=== PATIENT | female | born 1995 | race Caucasian/White ===

== ENCOUNTER 2016-07-19 16:04 | Emergency (ER) | payer OTHER ==
[2016-07-19 16:23] VITALS: RESP 18
[2016-07-19] MEDS ORDERED: SODIUM CHLORIDE 0.9% 1,000 ML IV ONE (17:36)
[2016-07-19 18:16] LABS: Appearance,Urine Clear (Clear); Basophils # (A) 0.1 k/uL (0-0.2); Basophils % (A) 1 %; Bilirubin,Urine Negative (Negative); CH 27.4; CHCM 33.8; Eosinophils # (A) 0.2 k/uL (0-0.7); Eosinophils % (A) 1 %; Glucose,Urine (UA) Negative (Negative); HCT 40.2 % (34.0-46.0); HGB 13.5 gm/dL (11.4-16.0); Ketones,Urine Negative (Negative); Leukocyte Esterase,Urine Negative (Negative); Luc # (Auto) 0.21; Luc % (Auto) 2; Lymphocytes # (A) 2.7 k/uL (1.0-4.8); Lymphocytes % (A) 20 %; MCH 27.4 pg (25.0-35.0); MCHC 33.7 g/dL (31.0-37.0); MCV 81.3 fL (80.0-100.0); Mean Platelet Volume 6.5; Monocytes # (A) 0.8 k/uL (0-1.0); Monocytes % (A) 6 %; Neutrophils # (A) 9.2 k/uL (1.3-7.7); Neutrophils % (A) 70 %; Nitrite,Urine Negative (Negative); PH, Urine 5.5 (5.0-8.0); Protein,Urine Negative (Negative); RBC 4.94 m/uL (3.80-5.40); RDW 13.3 % (11.5-15.5); Specific Gravity,Urine 1.012 (1.001-1.035); UA Billing (MACRO vs. MICRO) CHEM; Urobilinogen,Urine <2.0 mg/dL (<2.0); WBC (Perox) 12.47
[2016-07-19 18:28] LABS: Anion Gap 11 mmol/L; Blood Urea Nitrogen 8 mg/dL (7-17); Calcium 9.3 mg/dL (8.4-10.2); Carbon Dioxide 24 mmol/L (22-30); Chloride 105 mmol/L (98-107); Glucose 84 mg/dL (74-99); Non-African American GFR(MDRD) >60 (>60 ml/min/1.73 sqM); Potassium 3.8 mmol/L (3.5-5.1); Sodium 140 mmol/L (137-145)
--- NOTE | 2016-07-19 18:45 | ED ---
General Adult HPI - General Chief complaint: Abdominal Pain Stated complaint: 9 weeks /Bleeding Source: patient Mode of arrival: ambulatory Limitations: no limitations - History of Present Illness Initial comments: 21 yo at 9 weeks presenting with deep complaint of abdominal cramping for the last couple days. She states that she has not been able to follow-up with her [employer] Dr. Peters but she has started on vitamins. She states she is currently not having any cramping but was concerned given her previous miscarriages. She denies any vaginal bleeding or discharge and further denies dysuria. There are no other symptoms at this time. - Related Data Home Medications Medication Instructions Recorded Confirmed Cephalexin [Keflex] 500 mg PO Q8HR 07/19/16 07/19/16 Pnv with Ca,No.72/Iron/FA 1 tab PO DAILY 07/19/16 07/19/16 [ Plus Tablet] Allergies Allergy/AdvReac Type Severity Reaction Status Date / Time No Known Allergies Allergy Verified 07/19/16 17:38 Review of Systems ROS Statement: Those systems with pertinent positive or pertinent negative responses have been documented in the HPI. ROS Other: All systems not noted in ROS Statement are negative. Constitutional: Denies: fever, chills Eyes: Denies: eye pain, eye discharge, vision change ENT: Denies: ear pain, throat pain Respiratory: Denies: cough, dyspnea, wheezes Cardiovascular: Denies: chest pain, palpitations, dyspnea on exertion, orthopnea Endocrine: Reports: other (Abdominal cramping). Denies: fatigue, polydipsia, polyuria Gastrointestinal: Denies: abdominal pain, nausea, vomiting, diarrhea, constipation Genitourinary: Denies: urgency, dysuria Musculoskeletal: Denies: back pain, arthralgia, myalgia Skin: Denies: rash, lesions Neurological: Denies: headache, weakness Psychiatric: Denies: anxiety, depression Hematological/Lymphatic: Denies: easy bleeding, easy bruising Past Medical History Past Medical History: No Reported History Additional Past Medical History / Comment(s): OB history: previous spontaneous . Blood type O+ History of Any Multi-Drug Resistant Organisms: None Reported Past Surgical History: Ear Surgery, Orthopedic Surgery Additional Past Surgical History / Comment(s): birthmark removed from back, tubes in ears, ORIF left foot, Past Anesthesia/Blood Transfusion Reactions: No Reported Reaction Past Psychological History: No Psychological Hx Reported Smoking Status: Former smoker Past Alcohol Use History: None Reported Additional Past Alcohol Use History / Comment(s): quit smoking 7 yrs ago, smoked for 3 yrs, < 1 PPD Past Drug Use History: Marijuana - Past Family History Mother Family Medical History: Deep Vein Thrombosis (DVT) General Exam Limitations: no limitations General appearance: alert, in no apparent distress Head exam: Present: atraumatic, normocephalic, normal inspection Eye exam: Present: normal appearance, PERRL, EOMI. Absent: scleral icterus, conjunctival injection, periorbital swelling ENT exam: Present: normal exam, mucous membranes moist Neck exam: Present: normal inspection. Absent: tenderness, meningismus, lymphadenopathy Respiratory exam: Present: normal lung sounds bilaterally. Absent: respiratory distress, wheezes, rales, rhonchi, stridor Cardiovascular Exam: Present: regular rate, normal rhythm, normal heart sounds. Absent: systolic murmur, diastolic murmur, rubs, gallop, clicks GI/Abdominal exam: Present: soft, normal bowel sounds. Absent: distended, tenderness, guarding, rebound, rigid Rectal exam: Present: deferred Extremities exam: Present: normal inspection, full ROM, normal capillary refill. Absent: tenderness, pedal edema, joint swelling, calf tenderness Back exam: Present: normal inspection Neurological exam: Present: alert, oriented X3, CN II-XII intact Psychiatric exam: Present: normal affect, normal mood Skin exam: Present: warm, dry, intact, normal color. Absent: rash Course Vital Signs 07/19/16 16:20 Temperature 98.0 F Pulse Rate 114 H Respiratory 18 Rate Blood Pressure 139/79 O2 Sat by Pulse 100 Oximetry Medical Decision Making - Medical Decision Making 21-year-old female at 9 weeks gestation presenting for evaluation of abdominal cramping for the last couple days. She is currently not having any cramps and denies any vaginal discharge, bleeding, or dysuria. On physical examination her abdomen is soft and nontender without any peritoneal signs of guarding rigidity or rebound. Otherwise exam is benign. We 'll obtain labs, OB ultrasound, and provide IV fluids. Labs revealed no significant abnormalities and Ultrasound OB: Gestational age is 9 weeks 2 days. No complications noted. The patient was reevaluated and continued to have no symptoms. She was informed of these results and advised to continue taking her vitamins and to follow up with Dr. Peters. She was further advised to return to this facility if her symptoms should worsen or persist including but not limited to: Intractable abdominal pain, intractable nausea and vomiting, dysuria, hematuria, inability to urinate, chest pain, shortness of breath, syncope. The patient acknowledged an understanding of this information and agreed with this plan of care. - Lab Data Result diagrams: 07/19/16 17:50 07/19/16 17:50 Lab Results 07/19/16 07/19/16 07/19/16 Range/Units 17:50 17:50 17:50 WBC 13.0 H (3.8-10.6) k/uL RBC 4.94 (3.80-5.40) m/uL Hgb 13.5 (11.4-16.0) gm/dL Hct 40.2 (34.0-46.0) % MCV 81.3 (80.0-100.0) fL MCH 27.4 (25.0-35.0) pg MCHC 33.7 (31.0-37.0) g/dL RDW 13.3 (11.5-15.5) % Plt Count 319 (150-450) k/uL Neutrophils % 70 % Lymphocytes % 20 % Monocytes % 6 % Eosinophils % 1 % Basophils % 1 % Neutrophils # 9.2 H (1.3-7.7) k/uL Lymphocytes # 2.7 (1.0-4.8) k/uL Monocytes # 0.8 (0-1.0) k/uL Eosinophils # 0.2 (0-0.7) k/uL Basophils # 0.1 (0-0.2) k/uL Sodium 140 (137-145) mmol/L Potassium 3.8 (3.5-5.1) mmol/L Chloride 105 (98-107) mmol/L Carbon Dioxide 24 (22-30) mmol/L Anion Gap 11 mmol/L BUN 8 (7-17) mg/dL Creatinine 0.60 (0.52-1.04) mg/dL Est GFR (MDRD) Af Amer >60 (>60 ml/min/1.73 sqM) Est GFR (MDRD) Non-Af >60 (>60 ml/min/1.73 sqM) Glucose 84 (74-99) mg/dL Calcium 9.3 (8.4-10.2) mg/dL HCG, Quant 254720.0 mIU/mL Urine Color Urine Appearance (Clear) Urine pH (5.0-8.0) Ur Specific [place] (1.001-1.035) Urine Protein (Negative) Urine Glucose (UA) (Negative) Urine Ketones (Negative) Urine Blood (Negative) Urine Nitrite (Negative) Urine Bilirubin (Negative) Urine Urobilinogen (<2.0) mg/dL Ur Leukocyte Esterase (Negative) Blood Type O Positive Blood Type Recheck No 07/19/16 Range/Units 17:50 WBC (3.8-10.6) k/uL RBC (3.80-5.40) m/uL Hgb (11.4-16.0) gm/dL Hct (34.0-46.0) % MCV (80.0-100.0) fL MCH (25.0-35.0) pg MCHC (31.0-37.0) g/dL RDW (11.5-15.5) % Plt Count (150-450) k/uL Neutrophils % % Lymphocytes % % Monocytes % % Eosinophils % % Basophils % % Neutrophils # (1.3-7.7) k/uL Lymphocytes # (1.0-4.8) k/uL Monocytes # (0-1.0) k/uL Eosinophils # (0-0.7) k/uL Basophils # (0-0.2) k/uL Sodium (137-145) mmol/L Potassium (3.5-5.1) mmol/L Chloride (98-107) mmol/L Carbon Dioxide (22-30) mmol/L Anion Gap mmol/L BUN (7-17) mg/dL Creatinine (0.52-1.04) mg/dL Est GFR (MDRD) Af Amer (>60 ml/min/1.73 sqM) Est GFR (MDRD) Non-Af (>60 ml/min/1.73 sqM) Glucose (74-99) mg/dL Calcium (8.4-10.2) mg/dL HCG, Quant mIU/mL Urine Color Yellow Urine Appearance Clear (Clear) Urine pH 5.5 (5.0-8.0) Ur Specific [place] 1.012 (1.001-1.035) Urine Protein Negative (Negative) Urine Glucose (UA) Negative (Negative) Urine Ketones Negative (Negative) Urine Blood Negative (Negative) Urine Nitrite Negative (Negative) Urine Bilirubin Negative (Negative) Urine Urobilinogen <2.0 (<2.0) mg/dL Ur Leukocyte Esterase Negative (Negative) Blood Type Blood Type Recheck Disposition Clinical Impression: First trimester Disposition: HOME SELF-CARE Condition: Stable Instructions: Abdominal Pain in (ED), (ED), Nausea and Vomiting in (ED) Time of Disposition: 19:54
--- NOTE | 2016-07-19 18:49 | US ---
EXAMINATION TYPE: US OB <= 14 wk fetus DATE OF EXAM: 07/19/2016 6:40 PM COMPARISON: NONE CLINICAL HISTORY: Pain. EXAM PERFORMED: Transabdominal (TA) EXAM MEASUREMENTS: GESTATIONAL AGE / DATING Physician Established: (9 weeks/4 days) EDC: 02/17/2017 Dates by LMP: (9 weeks/4 days) EDC: 02/17/2017 Dates by First Scan: No previous Dates by Current Scan for: (9 weeks/2 days) EDC: 02/19/2017 MATERNAL ANATOMY Uterus: 9.7 x 6.8 x 8.1 cm Right Ovary: 2.6 x 1.8 x 1.3 cm Left Ovary: 3.2 x 1.5 x 2.4 cm Post CDS / Adnexa: wnl Presence of free fluid: No Presence of corpus luteal cyst: No Presence of subchorionic bleed: No GESTATION / SURVEY CRL: 2.55 cm (9 weeks/2 days) Yolk Sac (normal less than 6mm): 3 mm Heart Rate: 176 bpm Rhythm: Normal IUP: Viable IUP Date of LMP: 05/13/2016 Beta HcG (if available): Not available at time of exam Viable IUP, measurements congruent with dates IMPRESSION: The ultrasound gestational age is 9 weeks 2 days. I see no complication process.
[2016-07-19 20:15] VITALS: BP 107/64; PULSE 88; TEMP 98.3
== END 2016-07-19 20:15 | disposition home or self-care (01) ==
LOC: EC 16:04
DX: O99.89 Other specified diseases and conditions complicating pregnancy, childbirth and the puerperium (principal); R10.9 Unspecified abdominal pain; Z3A.09 9 weeks gestation of pregnancy; Z87.891 Personal history of nicotine dependence; Z79.899 Other long term (current) drug therapy
CPT/HCPCS: 36415; 76801; 80048; 81003; 84702; 85025; 86900; 86901; 96360; 96361; 99284

== ENCOUNTER → 2016-08-16 | Outpatient (CLI) | payer OTHER ==
[2016-08-16 11:43] LABS: CH 27.5; CHCM 32.9; HCT 38.5 % (34.0-46.0); HDW 2.33; HGB 12.9 gm/dL (11.4-16.0); MCH 28.2 pg (25.0-35.0); MCHC 33.5 g/dL (31.0-37.0); MCV 84.2 fL (80.0-100.0); Mean Platelet Volume 6.3; RBC 4.57 m/uL (3.80-5.40); WBC 14.2 k/uL (3.8-10.6)
[2016-08-16 11:50] LABS: Glucose 75 mg/dL (74-99); Non-African American GFR(MDRD) >60 (>60 ml/min/1.73 sqM)
[2016-08-16 12:22] LABS: Hepatitis B Surface Ag Index 0.05
[2016-08-17 05:03] LABS: Toxoplasma Antibody (IgG) <3.0 IU/mL (<7.2)
[2016-08-17 06:51] LABS: HIV-1/HIV-2 Ab Screen NONREAC (NON REAC)
== END | disposition home or self-care (01) ==
LOC: LABWHC1 11:07
PROVIDERS: ATTEND Obstetrics & Gynecology
DX: Z34.82 Encounter for supervision of other normal pregnancy, second trimester (principal); Z3A.00 Weeks of gestation of pregnancy not specified
CPT/HCPCS: 36415; 82565; 82947; 85027; 86762; 86777; 86778; 86780; 86850; 86900; 86901; 87340; 87389

== ENCOUNTER → 2016-11-04 | Outpatient (CLI) | payer OTHER ==
[2016-11-04 12:23] LABS: CH 29.1; CHCM 33.3; HCT 38.1 % (34.0-46.0); HDW 2.47; HGB 12.7 gm/dL (11.4-16.0); MCH 29.4 pg (25.0-35.0); MCHC 33.4 g/dL (31.0-37.0); MCV 87.9 fL (80.0-100.0); Mean Platelet Volume 7.2; RBC 4.33 m/uL (3.80-5.40); RDW 13.9 % (11.5-15.5); WBC 15.6 k/uL (3.8-10.6)
== END | disposition home or self-care (01) ==
LOC: LABWHC1 10:41
PROVIDERS: ATTEND Obstetrics & Gynecology
DX: Z34.82 Encounter for supervision of other normal pregnancy, second trimester (principal); Z3A.00 Weeks of gestation of pregnancy not specified
CPT/HCPCS: 36415; 82950; 85027

== ENCOUNTER 2016-12-06 22:44 | Outpatient (CLI) | payer OTHER ==
[2016-12-07 02:36] VITALS: BP 137/71; PULSE 92; RESP 16; TEMP 98.3
--- NOTE | 2016-12-08 09:02 | P.MSEPDOC ---
Presenting Problems - Arrival Data Date of Arrival on Unit: 12/06/16 Time of Arrival on Unit: 22:44 Mode of Transport: Ambulatory - Complaint OB-Reason for Admission/Chief Complaint: Other Comment: pt fell an hour before she came in Medical History - Information : 3 Para: 0 Term: 0 : 0 Abortions: Spontaneous or Elective: 0 Number of Living Children: 0 - Gestational Age Expected Date of Delivery: 02/17/17 Gestational Age by ROSALINO (wks/days): 29 Weeks and 6 Days Review of Systems - Review of Systems Constitutional: No problems Breast: No problems ENT: No problems Cardiovascular: No problems Respiratory: No problems Gastrointestinal: No problems Genitourinary: No problems Musculoskeletal: No problems Neurological: No problems Skin: No problems Vital Signs - Temperature Temperature: 98.3 F Temperature Source: Oral - Pulse Right Sitting Brachial Pulse Rate: 92 Pulse Assessment Method: Automatic Cuff - Respirations Respiratory Rate: 16 Oxygen Delivery Method: Room Air O2 Sat by Pulse Oximetry: 100 - Blood Pressure Right Arm Sitting Blood Pressure: 137/71 Blood Pressure Mean: 93 Blood Pressure Source: Automatic Cuff Medical Screen Scoring (Pre) - Cervical Exam Dilation: Exam Deferred Effacement: Exam Deferred Membranes: Intact - Uterine Contractions Frequency: N/A Duration: N/A Intensity: N/A - Maternal Vital Signs Maternal Temperature: N/A Maternal Blood Pressure: N/A Signs of Preeclampsia: N/A Maternal Respirations: N/A - Maternal Trauma Maternal Trauma: N/A - Assessment Heart Rate - NICHD Category: Category II (Indeterminate) = 3 NST: Reactive Position: N/A Station: N/A - Total Score Total Score (Pre): 3 - Level of Risk Level of Risk: Low (0-5) Physician Notification (Pre) - Physician Notified Physician Notified Date: 12/06/16 Physician Notified Time: 22:55 Physician/Practitioner Notifed:: Dr Fran Weathers Order Received: Yes - Notification Comment Comment: pt may be d/c with reactive NST, after being toco monitored for 3 hours. Medical Screen Scoring (Post) - Cervical Exam Dilation: Exam Deferred Effacement: Exam Deferred Membranes: Intact - Uterine Contractions Frequency: N/A Duration: N/A Intensity: N/A - Maternal Vital Signs Maternal Temperature: N/A Maternal Blood Pressure: N/A Signs of Preeclampsia: N/A Maternal Respirations: N/A - Assessment Heart Rate - NICHD Category: Category I (Normal) = 0 NST: Reactive - Total Score Total Score (Post): 0 - Post Treatment Level of Risk Post Treatment Level of Risk: Low (0-5) Disposition - Disposition OB Disposition: Discharge to home, Written follow up instructions reviewed Discharge Date: 12/07/16 Discharge Time: 02:00 I agree with the RN Medical Screening Exam: Yes Risk & Benefit of care provided described in d/c instruction: Yes Diagnosis: 29 WEEKS GESTATION OF
== END 2016-12-07 02:00 | disposition home or self-care (01) ==
LOC: FBPOP 22:44
PROVIDERS: ATTEND Obstetrics & Gynecology
DX: O26.893 Other specified pregnancy related conditions, third trimester (principal); Z3A.29 29 weeks gestation of pregnancy
CPT/HCPCS: 59025; G0463; 99213

== ENCOUNTER 2017-02-18 14:01 | Outpatient (CLI) | payer OTHER ==
[2017-02-18 15:09] VITALS: BP 137/81; PULSE 105; RESP 18; TEMP 98.4
--- NOTE | 2017-02-19 11:09 | P.MSEPDOC ---
Presenting Problems - Arrival Data Date of Arrival on Unit: 02/18/17 Time of Arrival on Unit: 14:01 Mode of Transport: Ambulatory - Complaint OB-Reason for Admission/Chief Complaint: Rule Out SROM Comment: leaking fluid for the last few days Medical History - Information : 3 Para: 0 Term: 0 : 0 Abortions: Spontaneous or Elective: 0 Number of Living Children: 0 - Gestational Age Gestational Age by ROSALINO (wks/days): 40 Weeks and 1 Days Review of Systems - Review of Systems Constitutional: No problems Breast: No problems ENT: No problems Cardiovascular: No problems Respiratory: No problems Gastrointestinal: No problems Genitourinary: No problems Musculoskeletal: No problems Neurological: No problems Skin: No problems Vital Signs - Temperature Temperature: 98.4 F Temperature Source: Temporal Artery Scan - Pulse Right Brachial Pulse Rate: 105 Pulse Assessment Method: Automatic Cuff - Respirations Respiratory Rate: 18 Oxygen Delivery Method: Room Air - Blood Pressure Right Arm Blood Pressure: 137/81 Blood Pressure Mean: 99 Blood Pressure Source: Automatic Cuff Medical Screen Scoring (Pre) - Cervical Exam Dilation: 1-3 cm = 1 Effacement: More than 50% = 2 Membranes: Intact - Uterine Contractions Frequency: > 5 minutes apart = 1 Duration: N/A Intensity: N/A - Maternal Vital Signs Maternal Temperature: N/A Maternal Blood Pressure: N/A Signs of Preeclampsia: N/A Maternal Respirations: N/A - Pain Assessment Pain Scale Used: Numeric (1 - 10) Pain Intensity: 0 - Maternal Trauma Maternal Trauma: N/A - Assessment Baseline FHR: 150 Heart Rate - NICHD Category: Category I (Normal) = 0 NST: Reactive Position: N/A Station: N/A - Total Score Total Score (Pre): 4 - Level of Risk Level of Risk: Low (0-5) Physician Notification (Pre) - Physician Notified Physician Notified Date: 02/18/17 Physician Notified Time: 14:50 Physician/Practitioner Notifed:: Dr. Jensen Spoke With: Dr. Jensen New Order Received: Yes - Notification Comment Comment: discharge pt home, follow up at scheduled appt on monday in office with Dr. Peters Disposition - Disposition OB Disposition: Triage, Discharge to home, Written follow up instructions reviewed Discharge Date: 02/18/17 Discharge Time: 15:00 I agree with the RN Medical Screening Exam: Yes Risk & Benefit of care provided described in d/c instruction: Yes Diagnosis: FALSE LABOR AT OR AFTER 37 COMPLETED WEEKS OF GESTATION
== END 2017-02-18 15:00 | disposition home or self-care (01) ==
LOC: FBPOP 14:01
PROVIDERS: ATTEND Obstetrics & Gynecology
DX: O47.1 False labor at or after 37 completed weeks of gestation (principal); Z3A.40 40 weeks gestation of pregnancy
CPT/HCPCS: 59025; 84112; G0463; 99213

== ENCOUNTER 2017-02-19 10:00 | Outpatient (CLI) | payer OTHER ==
[2017-02-19 10:55] VITALS: BP 136/64; PULSE 110; RESP 18; TEMP 97.7
--- NOTE | 2017-03-03 08:56 | P.MSEPDOC ---
Presenting Problems - Arrival Data Date of Arrival on Unit: 02/19/17 Time of Arrival on Unit: 10:00 Mode of Transport: Ambulatory - Complaint OB-Reason for Admission/Chief Complaint: Possible Onset of Labor Medical History - Information : 3 Para: 0 Term: 0 : 0 Abortions: Spontaneous or Elective: 0 Number of Living Children: 0 - Gestational Age Gestational Age by ROSALINO (wks/days): 40 Weeks and 2 Days - History Sexually Transmitted Diseases: Chlamydia Comment: 02-18-2016. retested and negative on 03-12-2016 Review of Systems - Review of Systems Constitutional: No problems Breast: No problems ENT: No problems Cardiovascular: No problems Respiratory: No problems Gastrointestinal: No problems Genitourinary: No problems Musculoskeletal: No problems Neurological: No problems Skin: No problems Vital Signs - Temperature Temperature: 97.7 F Temperature Source: Oral - Pulse Right Brachial Pulse Rate: 110 Pulse Assessment Method: Automatic Cuff - Respirations Respiratory Rate: 18 Oxygen Delivery Method: Room Air O2 Sat by Pulse Oximetry: 96 - Blood Pressure Right Arm Blood Pressure: 136/64 Blood Pressure Mean: 88 Blood Pressure Source: Automatic Cuff Medical Screen Scoring (Pre) - Cervical Exam Dilation: 1-3 cm = 1 Effacement: More than 50% = 2 Membranes: Intact - Uterine Contractions Frequency: > 5 minutes apart = 1 Duration: > 40 seconds = 2 Intensity: N/A - Maternal Vital Signs Maternal Temperature: N/A Maternal Blood Pressure: N/A Signs of Preeclampsia: N/A Maternal Respirations: N/A - Pain Assessment Pain Location and Character: Lower, Back, Abdomen Pain Scale Used: Numeric (1 - 10) Pain Intensity: 5 Pain Description: Cramping Pain Frequency: Intermittent Pain Duration: 7 Pain Duration Units: Hours Pain Behavior: None Exhibited Pain Aggravating Factors: Contractions Non-Pharmacological Interventions: Darkened Room, Position/Reposition FLACC Face: No Expression/Smile = 0 FLACC Legs: Relaxed = 0 FLACC Activity: Lying Quietly = 0 FLACC Cry: No Cry = 0 FLACC Consolability: Content/Relaxed = 0 FLACC Pain Score: 0 - Maternal Trauma Maternal Trauma: N/A - Assessment Baseline FHR: 155 Heart Rate - NICHD Category: Category I (Normal) = 0 NST: Reactive Position: N/A Station: N/A - Total Score Total Score (Pre): 6 - Level of Risk Level of Risk: Medium (6-9) Physician Notification (Pre) - Physician Notified Spoke With: brittny - Notification Comment Comment: disch home to keep next sched appt tomoroow with dr bird Medical Screen Scoring (Post) - Cervical Exam Dilation: 1-3 cm = 1 Effacement: More than 50% = 2 Membranes: Intact - Uterine Contractions Frequency: > 5 minutes apart = 1 Duration: > 40 seconds = 2 Intensity: N/A - Maternal Vital Signs Maternal Temperature: N/A Maternal Blood Pressure: N/A Signs of Preeclampsia: N/A Maternal Respirations: N/A - Pain Assessment Pain Location and Character: Lower, Back, Abdomen Pain Scale Used: Numeric (1 - 10) Pain Intensity: 5 Pain Description: Cramping Pain Frequency: Intermittent Pain Duration: 7 Pain Duration Units: Hours Pain Behavior: None Exhibited FLACC Face: No Expression/Smile = 0 FLACC Legs: Relaxed = 0 FLACC Activity: Lying Quietly = 0 FLACC Cry: No Cry = 0 FLACC Consolability: Content/Relaxed = 0 FLACC Pain Score: 0 - Assessment Heart Rate: 155 Heart Rate - NICHD Category: Category I (Normal) = 0 NST: Reactive Station: N/A - Total Score Total Score (Post): 6 - Post Treatment Level of Risk Post Treatment Level of Risk: Medium (6-9) Physician Notification (Post) - Physician Notified Physician Notified Date: 02/19/17 Physician Notified Time: 11:18 Physician/Practitioner Notified:: brittny New Order Received: Yes - Notification Comment Comment: disch to keep sched appt tomorrow am. with dr bird Disposition - Disposition OB Disposition: Discharge to home Discharge Date: 02/19/17 Discharge Time: 11:18 I agree with the RN Medical Screening Exam: Yes Risk & Benefit of care provided described in d/c instruction: Yes Diagnosis: FALSE LABOR AT OR AFTER 37 COMPLETED WEEKS OF GESTATION
== END 2017-02-19 11:21 | disposition home or self-care (01) ==
LOC: FBPOP 10:00
PROVIDERS: ATTEND Obstetrics & Gynecology
DX: O47.1 False labor at or after 37 completed weeks of gestation (principal); Z3A.40 40 weeks gestation of pregnancy
CPT/HCPCS: 59025; G0463; 99213

== ENCOUNTER 2017-02-19 18:14 | Inpatient (IN) | payer OTHER ==
[2017-02-19] MEDS ORDERED: TERBUTALINE 1 MG/ML VIAL SQ PRN (18:52)
[2017-02-19] MEDS ORDERED: CARBOPROST TROMETHAMINE 250 MCG/ML 1 ML AMP IM PRN (18:52)
[2017-02-19] MEDS ORDERED: METHYLERGONOVINE 0.2 MG/ML 1 ML AMP IM PRN (18:52)
[2017-02-19] MEDS ORDERED: OXYTOCIN 10 UNIT/ML 1 ML VIAL IM PRN (18:52)
[2017-02-19] MEDS ORDERED: LIDOCAINE 1% (PF) 10 MG/ML (30 ML SDV) SQ PRN (18:52)
[2017-02-19 19:23] VITALS: BMI 35.0
[2017-02-19] MEDS: LACTATED RINGERS 1,000 ML IV SCH ×2 (19:24→20:50)
[2017-02-19 19:38] LABS: Basophils % (A) 0 %; CH 27.9; CHCM 33.1; Eosinophils % (A) 0 %; HCT 41.4 % (34.0-46.0); HGB 13.7 gm/dL (11.4-16.0); Luc % (Auto) 1; Lymphocytes # (A) 1.3 k/uL (1.0-4.8); Lymphocytes % (A) 6 %; MCHC 33.1 g/dL (31.0-37.0); MCV 84.5 fL (80.0-100.0); Mean Platelet Volume 7.8; Monocytes # (A) 0.8 k/uL (0-1.0); Monocytes % (A) 4 %; Neutrophils # (A) 18.7 k/uL (1.3-7.7); Neutrophils % (A) 89 %; RBC 4.89 m/uL (3.80-5.40); RDW 14.2 % (11.5-15.5); WBC (Perox) 20.88
[2017-02-19] MEDS ORDERED: OXYTOCIN 20 UNITS/1000 ML NS 1,000 ML IV SCH (20:00)
[2017-02-19] MEDS ORDERED: BUTORPHANOL 1 MG/ML 1 ML VIAL IV PRN (20:30)
[2017-02-19] MEDS ORDERED: SODIUM CHLORIDE 0.9% 100 ML BAG ONE (20:40)
[2017-02-19] MEDS ORDERED: BUPIVACAINE (PF) 0.25% 30 ML VIAL ONE (20:40)
[2017-02-19] MEDS ORDERED: fentaNYL (PF) 50 MCG/ML 5 ML AMP ONE (20:40)
[2017-02-19] MEDS ORDERED: BUPIVACAINE (PF) 0.25% 25 ML, fentaNYL (PF) 200 MCG in SODIUM CHLORIDE 0.9% 71 ML EPIDURAL ONE (21:38)
--- NOTE | 2017-02-19 22:47 | P.HPOB ---
History of Present Illness H&P Date: 02/19/17 Chief Complaint: Contractions This is a 21-year-old female 3 para 0 with an estimated date of confinement of 02/17/2017, estimated gestational age of 40-2/7 weeks, who presents to labor and delivery with complaints of contractions since approximately 3:30 AM today. She was seen in triage earlier today and was found to be 1-1/2 cm without any cervical change for an hour. She returned and was found to be 4 cm. She denies any rupture of membranes. care has been with Dr. Peters and has been essentially uncomplicated per patient. labs: Syphilis antibody-negative nonreactive Hepatitis B surface antigen-negative HIV-nonreactive Rubella-nonimmune Hemoglobin-13.5 One hour Glucola-114 Group B streptococcus-negative Obstetrical history: . History of 2 miscarriages. Review of Systems Constitutional: Denies chills, Denies fever Eyes: denies blurred vision, denies pain Ears, nose, mouth and throat: Denies headache, Denies sore throat Cardiovascular: Denies chest pain, Denies shortness of breath Respiratory: Denies cough Gastrointestinal: Reports abdominal pain (Contractions) Genitourinary: Reports pelvic pain, Reports Musculoskeletal: Reports low back pain Integumentary: Denies pruritus, Denies rash Neurological: Denies numbness, Denies weakness Psychiatric: Denies anxiety, Denies depression Past Medical History Past Medical History: No Reported History History of Any Multi-Drug Resistant Organisms: None Reported Past Surgical History: Ear Surgery, Orthopedic Surgery Additional Past Surgical History / Comment(s): birthmark removed from back, tubes in ears, ORIF left foot, Past Anesthesia/Blood Transfusion Reactions: No Reported Reaction Past Psychological History: No Psychological Hx Reported Smoking Status: Former smoker Past Alcohol Use History: None Reported Additional Past Alcohol Use History / Comment(s): quit smoking 7 yrs ago, smoked for 3 yrs, < 1 PPD Past Drug Use History: Marijuana - Past Family History Mother History Unknown: Yes Family Medical History: Deep Vein Thrombosis (DVT) Medications and Allergies Home Medications Medication Instructions Recorded Confirmed Type Pnv,Calcium 72/Iron/Folic Acid 1 tab PO DAILY 07/19/16 02/19/17 History [ Plus Tablet] Allergies Allergy/AdvReac Type Severity Reaction Status Date / Time No Known Allergies Allergy Verified 02/19/17 18:29 Exam Osteopathic Statement: *. No significant issues noted on an osteopathic structural exam other than those noted in the History and Physical/Consult. - Vital Signs Vital signs: Vital Signs Temp Pulse Resp BP 02/19/17 19:04 98 F 104 H 18 130/73 02/19/17 18:58 98.0 F 104 H 18 130/73 Intake and Output 02/19/17 02/19/17 02/19/17 06:59 14:59 22:59 Other: Weight 92.533 kg Patient Weight 02/20/17 06:59 Weight 92.533 kg HEENT: Within normal limits Heart: Regular rate and rhythm Lungs: Clear to auscultation bilaterally Abdomen: Cervix: Initially on admission was 4 cm/90%/-2 station with bulging bag heart tones: Reactive Contractions: Every 2-5 minutes Extremities: Negative Homans Results Result Diagrams: 02/19/17 19:20 Abnormal Lab Results - Last 24 Hours (Table) 02/19/17 Range/Units 19:20 WBC 21.0 H (3.8-10.6) k/uL Neutrophils # 18.7 H (1.3-7.7) k/uL Assessment and Plan (1) 40 weeks gestation of Current Visit: Yes Status: Acute Code(s): Z3A.40 - 40 WEEKS GESTATION OF SNOMED Code(s): 13385949 Plan: Plan is admission for active labor. Expectant management. Epidural anesthesia if desired.
--- NOTE | 2017-02-20 01:54 | P.PROBDLV ---
Vaginal Delivery Note - . Vaginal Delivery Note: The patient arrived in active labor. She did receive epidural anesthesia. After epidural she was checked and found to be approximately 7 cm and artificial rupture membranes was carried out. At that time she was having significant bloody show and we were unable to determine the color of the fluid. She progressed to complete dilation and began pushing. 's head came to a crown. With one further push the 's head delivered across the perineum by the anterior shoulder in a right occiput anterior lie. Nose and mouth were bulb suctioned at perineum and at this time it was noted that there was thick meconium. With one further push, the remainder the easily delivered and was placed on mother's abdomen. Brisk cry was noted immediately. Cord was clamped and cut and infant was taken to warmer nursing staff. A viable male with scores of 8 at 1 minute and 9 at 5 minutes and weight of 8 lbs. 1 oz. was noted. Placenta delivered shortly thereafter, intact, with a three-vessel cord. Uterus contracted fairly well after oxytocin was opened up and uterine massage was carried out. Inspection of the perineum revealed a small first-degree perineal laceration. This area was anesthetized with 1% lidocaine and sutured with 3-0 Vicryl suture in a running locked fashion. Estimated blood loss is approximately 150 mL's. Both mother and are in stable condition.
[2017-02-20] MEDS ORDERED: HYDROCORTISONE 2.5% RECTAL CREAM 30 GM TUBE RECTAL PRN (03:03)
[2017-02-20] MEDS ORDERED: diphenhydrAMINE 25 MG CAP PO PRN (03:03)
[2017-02-20] MEDS ORDERED: ZOLPIDEM 5 MG TAB PO PRN (03:03)
[2017-02-20] MEDS ORDERED: BENZOCAINE/MENTHOL SPRAY 1 GM/SPRAY AEROSOL TOPICAL PRN (03:03)
[2017-02-20] MEDS ORDERED: diphenhydrAMINE 50 MG CAP PO PRN (03:03)
[2017-02-20] MEDS ORDERED: LANOLIN CREAM 5 GM TUBE TOPICAL PRN (03:03)
[2017-02-20] MEDS ORDERED: diphenhydrAMINE 50 MG/ML 1 ML VIAL IVP PRN ×2 (03:03)
[2017-02-20] MEDS ORDERED: WITCH HAZEL 1 EACH MED..PAD TOPICAL PRN (03:03)
[2017-02-20] MEDS ORDERED: SIMETHICONE 80 MG CHEWABLE PO PRN (03:03)
[2017-02-20] MEDS ORDERED: MEASLES-MUMPS-RUBELLA VACC/PF 12,500 UNIT/0.5 ML VIAL SQ ONE (03:03)
[2017-02-20] MEDS ORDERED: ACETAMINOPHEN TAB 325 MG TAB PO PRN (03:03)
[2017-02-20] MEDS ORDERED: OXYTOCIN 20 UNITS/1000 ML NS 1,000 ML IV SCH (03:03)
[2017-02-20 06:35] LABS: Basophils % (A) 0 %; CH 28.2; CHCM 32.7; Eosinophils # (A) 0.1 k/uL (0-0.7); Eosinophils % (A) 0 %; HCT 37.4 % (34.0-46.0); HDW 2.43; HGB 11.9 gm/dL (11.4-16.0); Luc # (Auto) 0.18; Luc % (Auto) 1; Lymphocytes # (A) 1.6 k/uL (1.0-4.8); Lymphocytes % (A) 6 %; MCH 27.5 pg (25.0-35.0); MCHC 31.8 g/dL (31.0-37.0); MCV 86.5 fL (80.0-100.0); Mean Platelet Volume 7.4; Monocytes # (A) 1.7 k/uL (0-1.0); Monocytes % (A) 6 %; Neutrophils % (A) 87 %; RBC 4.32 m/uL (3.80-5.40); RDW 13.2 % (11.5-15.5); WBC (Perox) 29.14
[2017-02-20 06:48] LABS: WBC 27.5 k/uL (3.8-10.6)
[2017-02-20] MEDS: SENNOSIDES-DOCUSATE SODIUM 1 EACH TAB PO SCH ×2 (08:22→20:52)
--- NOTE | 2017-02-20 09:06 | P.MSEPDOC ---
Presenting Problems - Arrival Data Date of Arrival on Unit: 02/19/17 Time of Arrival on Unit: 18:14 Mode of Transport: Wheelchair - Complaint OB-Reason for Admission/Chief Complaint: Possible Onset of Labor Comment: contractions increasing in frequency and strength Medical History - Information : 3 Para: 0 Term: 0 : 0 Abortions: Spontaneous or Elective: 0 Number of Living Children: 0 - Gestational Age Gestational Age by ROSALINO (wks/days): 40 Weeks and 2 Days Review of Systems - Review of Systems Constitutional: No problems Breast: No problems ENT: No problems Cardiovascular: No problems Respiratory: No problems Gastrointestinal: No problems Genitourinary: No problems Musculoskeletal: No problems Neurological: No problems Skin: No problems Vital Signs - Temperature Temperature: 98.6 F Temperature Source: Oral - Pulse Right Brachial Pulse Rate: 110 Pulse Assessment Method: Automatic Cuff - Respirations Respiratory Rate: 16 Oxygen Delivery Method: Room Air - Blood Pressure Right Arm Blood Pressure: 108/55 Blood Pressure Mean: 72 Blood Pressure Source: Automatic Cuff Medical Screen Scoring (Pre) - Cervical Exam Dilation: 4-7 cm = 2 Effacement: More than 50% = 2 Membranes: Intact - Uterine Contractions Frequency: > or = 36 weeks =2 Duration: > 40 seconds = 2 Intensity: Contraction palpated strong = 1 - Maternal Vital Signs Maternal Temperature: N/A Maternal Blood Pressure: N/A Signs of Preeclampsia: N/A Maternal Respirations: N/A - Pain Assessment Pain Location and Character: Abdomen Pain Scale Used: Numeric (1 - 10) Pain Intensity: 6 Pain Management Goal: 3 Pain Description: *Acute Pain Radiation Location: none Pain Frequency: Intermittent Pain Duration: 60 Pain Duration Units: Minutes Pain Behavior: Guarding, Vocalization Non-Pharmacological Interventions: Position/Reposition - Maternal Trauma Maternal Trauma: N/A - Assessment Baseline FHR: 150 Heart Rate - NICHD Category: Category I (Normal) = 0 NST: Reactive Position: N/A Station: N/A - Total Score Total Score (Pre): 9 - Level of Risk Level of Risk: Medium (6-9) Physician Notification (Pre) - Physician Notified Physician Notified Date: 02/19/17 Physician Notified Time: 18:43 Physician/Practitioner Notifed:: Dr. Jensen Spoke With: Dr. Jensen New Order Received: Yes - Notification Comment Comment: admitted for labort Disposition - Disposition OB Disposition: Admit, LDRP Suite I agree with the RN Medical Screening Exam: Yes Risk & Benefit of care provided described in d/c instruction: Yes Diagnosis: ENCOUNTER FOR FULL-TERM UNCOMPLICATED DELIVERY
[2017-02-20] MEDS: IBUPROFEN 600 MG TAB PO PRN (14:53)
[2017-02-21] MEDS: IBUPROFEN 600 MG TAB PO PRN (07:56)
[2017-02-21] MEDS: SENNOSIDES-DOCUSATE SODIUM 1 EACH TAB PO SCH (07:56)
--- NOTE | 2017-02-21 07:58 | P.DS ---
Providers Date of admission: 02/19/17 19:00 Expected date of discharge: 02/21/17 Attending physician: Jennifer Peters Primary care physician: Stated None - Discharge Diagnosis(es) (1) Normal vaginal delivery Current Visit: Yes Status: Acute Hospital Course: Patient presented in active labor. She underwent normal vaginal delivery. Her course was uncomplicated. She denies nausea, vomiting, headache, fever chills, chest pain, shortness of breath or calf pain. She'll be discharged home day #1 in stable condition to follow-up with me in 6 weeks. Plan - Discharge Summary Discharge Rx Participant: Yes New Discharge Prescriptions: New Ibuprofen [Motrin] 600 mg PO Q6HR PRN #30 tab PRN Reason: Mild Pain Or Fever >= 100.5 No Action Pnv,Calcium 72/Iron/Folic Acid [ Plus Tablet] 1 tab PO DAILY Discharge Medication List Pnv,Calcium 72/Iron/Folic Acid [ Plus Tablet] 1 tab PO DAILY 07/19/16 [ History] Ibuprofen [Motrin] 600 mg PO Q6HR PRN #30 tab 02/21/17 [Rx] Follow up Appointment(s)/Referral(s): Jennifer Peters DO [Doctor of Osteopathic Medicine] - 6 Weeks Discharge Disposition: HOME SELF-CARE
[2017-02-21 09:27] VITALS: BP 123/72; PULSE 97; RESP 18; TEMP 98
== END 2017-02-21 10:25 | disposition home or self-care (01) | DRG 560 ==
LOC: FBPOP 18:14 → 4FBP 19:00
PROVIDERS: ADMIT Obstetrics & Gynecology; ATTEND Obstetrics & Gynecology
PROC: 10E0XZZ Delivery of Products of Conception, External Approach (ICD-10-PCS; principal; 2017-02-20)
PROC: 0WQNXZZ Repair Female Perineum, External Approach (ICD-10-PCS; 2017-02-20)
PROC: 00HU33Z Insertion of Infusion Device into Spinal Canal, Percutaneous Approach (ICD-10-PCS; 2017-02-20)
PROC: 3E0R3BZ Introduction of Anesthetic Agent into Spinal Canal, Percutaneous Approach (ICD-10-PCS; 2017-02-20)
DX: O77.0 Labor and delivery complicated by meconium in amniotic fluid (principal); O70.0 First degree perineal laceration during delivery; Z37.0 Single live birth; Z3A.40 40 weeks gestation of pregnancy; Z87.891 Personal history of nicotine dependence
CPT/HCPCS: 59025; 85025; 88307; 90471; 90707; 99213

== ENCOUNTER 2017-06-08 16:07 | Observation (INO) | payer OTHER ==
[2017-06-08] MEDS ORDERED: SODIUM CHLORIDE 0.9% 1,000 ML IV STA (16:29)
[2017-06-08] MEDS ORDERED: RX INFO: IV CONTRAST WAS GIVEN 1 EACH MISC MISCELLANE PRN (16:29)
--- NOTE | 2017-06-08 16:32 | ED ---
General Adult HPI - General Chief complaint: Abdominal Pain Stated complaint: Abd Pain Time Seen by Provider: 06/08/17 16:23 Source: patient, RN notes reviewed Mode of arrival: ambulatory Limitations: no limitations - History of Present Illness Initial comments: 22-year-old female presents to the emergency department with a chief complaint of centralized abdominal pain for 3 days. She states that she's had this for the past few days. She states there is been no nausea no vomiting no fever no chills no diarrhea. She states that her mother was concerned so she told her to come and be seen because her mother had similar complaints and it was her gallbladder. She states is just a constant pain doesn't move it doesn't change. Patient denies any cough cold or runny nose with this. She denies any history of problems with this in the past.Patient denies any recent fever, chills, shortness of breath, chest pain, back pain, nausea vomiting, numbness or tingling, dysuria or hematuria, constipation or diarrhea, headaches or visual changes, or any other current symptoms. - Related Data Home Medications Medication Instructions Recorded Confirmed Orsythia-28 1 tab PO DAILY 06/08/17 06/08/17 Allergies Allergy/AdvReac Type Severity Reaction Status Date / Time No Known Allergies Allergy Verified 06/08/17 16:26 Review of Systems ROS Statement: Those systems with pertinent positive or pertinent negative responses have been documented in the HPI. ROS Other: All systems not noted in ROS Statement are negative. Past Medical History Past Medical History: No Reported History Additional Past Medical History / Comment(s): OB history: previous spontaneous . Blood type O+ History of Any Multi-Drug Resistant Organisms: None Reported Past Surgical History: Ear Surgery, Orthopedic Surgery Additional Past Surgical History / Comment(s): birthmark removed from back, tubes in ears, ORIF left foot, Past Anesthesia/Blood Transfusion Reactions: No Reported Reaction Past Psychological History: No Psychological Hx Reported Smoking Status: Former smoker Past Alcohol Use History: None Reported Past Drug Use History: Marijuana - Past Family History Mother History Unknown: Yes Family Medical History: Deep Vein Thrombosis (DVT) General Exam - General Exam Comments Initial Comments: General: The patient is awake and alert, in no distress, and does not appear acutely ill. Eye: Pupils are equal, round and reactive to light, extra-ocular movements are intact; there is normal conjunctiva bilaterally. No signs of icterus. Ears, nose, mouth and throat: There are moist mucous membranes and no oral lesions. Neck: The neck is supple, there is no tenderness. Cardiovascular: There is a regular rate and rhythm. No murmur, rub or gallop is appreciated. Respiratory: Lungs are clear to auscultation, respirations are non-labored, breath sounds are equal. No wheezes, stridor, rales, or rhonchi. Gastrointestinal: Soft, non-distended, minimal around the umbilicus of the abdomen without masses or organomegaly noted. There is no rebound or guarding present. No CVA tenderness. Bowel sounds are unremarkable. Back: There is no tenderness to palpation in the midline. There is no obvious deformity. No rashes noted. Musculoskeletal: Normal ROM, no tenderness, There is no pedal edema. There is no calf tenderness or swelling. Sensation intact. Pulses equal bilaterally 2+. Neurological: CN II-XII intact, There are no obvious motor or sensory deficits. Coordination appears grossly intact. Speech is normal. Skin: Skin is warm and dry and no rashes or lesions are noted. Psychiatric: Cooperative, appropriate mood & affect, normal judgment. Limitations: no limitations Course Vital Signs 06/08/17 06/08/17 06/08/17 16:16 17:41 18:46 Temperature 96.8 F L 98.1 F Pulse Rate 102 H 77 104 H Respiratory 16 18 18 Rate Blood Pressure 124/61 105/53 122/58 O2 Sat by Pulse 98 99 100 Oximetry Medical Decision Making - Medical Decision Making 22-year-old female presents for abdominal pain. At this time the patient CAT scan has been reviewed as well as white count. This time there is concern for possible colitis versus other etiologies. Dr. Etienne was contacted by Dr. Garrison who does agree to the admission. He states now antibiotics now steroid chest pain meds nausea meds and nothing by mouth at midnight. The patient is agreement this plan all questions have been answered. Patient will be admitted at this time. - Lab Data Result diagrams: 06/08/17 17:35 06/08/17 17:35 Lab Results 06/08/17 06/08/17 06/08/17 Range/Units 17:35 17:35 17:35 WBC 17.6 H (3.8-10.6) k/uL RBC 4.99 (3.80-5.40) m/uL Hgb 13.5 (11.4-16.0) gm/dL Hct 43.0 (34.0-46.0) % MCV 86.0 (80.0-100.0) fL MCH 26.9 (25.0-35.0) pg MCHC 31.3 (31.0-37.0) g/dL RDW 13.3 (11.5-15.5) % Plt Count 333 (150-450) k/uL Neutrophils % 85 % Lymphocytes % 10 % Monocytes % 3 % Eosinophils % 1 % Basophils % 0 % Neutrophils # 15.0 H (1.3-7.7) k/uL Lymphocytes # 1.8 (1.0-4.8) k/uL Monocytes # 0.6 (0-1.0) k/uL Eosinophils # 0.2 (0-0.7) k/uL Basophils # 0.0 (0-0.2) k/uL Sodium 140 (137-145) mmol/L Potassium 4.2 (3.5-5.1) mmol/L Chloride 105 (98-107) mmol/L Carbon Dioxide 23 (22-30) mmol/L Anion Gap 12 mmol/L BUN 8 (7-17) mg/dL Creatinine 0.67 (0.52-1.04) mg/dL Est GFR (MDRD) Af Amer >60 (>60 ml/min/1.73 sqM) Est GFR (MDRD) Non-Af >60 (>60 ml/min/1.73 sqM) Glucose 92 (74-99) mg/dL Calcium 9.1 (8.4-10.2) mg/dL Total Bilirubin 0.4 (0.2-1.3) mg/dL AST 24 (14-36) U/L ALT 38 (9-52) U/L Alkaline Phosphatase 89 (38-126) U/L Total Protein 6.9 (6.3-8.2) g/dL Albumin 3.8 (3.5-5.0) g/dL Amylase 55 (30-110) U/L Lipase 27 (23-300) U/L Urine Color Urine Appearance (Clear) Urine pH (5.0-8.0) Ur Specific [place] (1.001-1.035) Urine Protein (Negative) Urine Glucose (UA) (Negative) Urine Ketones (Negative) Urine Blood (Negative) Urine Nitrite (Negative) Urine Bilirubin (Negative) Urine Urobilinogen (<2.0) mg/dL Ur Leukocyte Esterase (Negative) Urine RBC (0-5) /hpf Urine WBC (0-5) /hpf Ur Squamous Epith Cells (0-4) /hpf Urine Bacteria (None) /hpf Urine Mucus (None) /hpf Urine HCG, Qual Not Detected (Not Detectd) 06/08/17 Range/Units 17:35 WBC (3.8-10.6) k/uL RBC (3.80-5.40) m/uL Hgb (11.4-16.0) gm/dL Hct (34.0-46.0) % MCV (80.0-100.0) fL MCH (25.0-35.0) pg MCHC (31.0-37.0) g/dL RDW (11.5-15.5) % Plt Count (150-450) k/uL Neutrophils % % Lymphocytes % % Monocytes % % Eosinophils % % Basophils % % Neutrophils # (1.3-7.7) k/uL Lymphocytes # (1.0-4.8) k/uL Monocytes # (0-1.0) k/uL Eosinophils # (0-0.7) k/uL Basophils # (0-0.2) k/uL Sodium (137-145) mmol/L Potassium (3.5-5.1) mmol/L Chloride (98-107) mmol/L Carbon Dioxide (22-30) mmol/L Anion Gap mmol/L BUN (7-17) mg/dL Creatinine (0.52-1.04) mg/dL Est GFR (MDRD) Af Amer (>60 ml/min/1.73 sqM) Est GFR (MDRD) Non-Af (>60 ml/min/1.73 sqM) Glucose (74-99) mg/dL Calcium (8.4-10.2) mg/dL Total Bilirubin (0.2-1.3) mg/dL AST (14-36) U/L ALT (9-52) U/L Alkaline Phosphatase (38-126) U/L Total Protein (6.3-8.2) g/dL Albumin (3.5-5.0) g/dL Amylase (30-110) U/L Lipase (23-300) U/L Urine Color Yellow Urine Appearance Clear (Clear) Urine pH 5.5 (5.0-8.0) Ur Specific [place] 1.011 (1.001-1.035) Urine Protein Negative (Negative) Urine Glucose (UA) Negative (Negative) Urine Ketones Negative (Negative) Urine Blood Negative (Negative) Urine Nitrite Negative (Negative) Urine Bilirubin Negative (Negative) Urine Urobilinogen <2.0 (<2.0) mg/dL Ur Leukocyte Esterase Moderate H (Negative) Urine RBC <1 (0-5) /hpf Urine WBC 8 H (0-5) /hpf Ur Squamous Epith Cells 4 (0-4) /hpf Urine Bacteria Rare H (None) /hpf Urine Mucus Occasional H (None) /hpf Urine HCG, Qual (Not Detectd) - Radiology Data Radiology results: report reviewed, image reviewed Disposition Clinical Impression: Abdominal pain, Colitis Disposition: ADMITTED IP TO THIS [facility] Condition: Stable Referrals: None,Stated [Primary Care Provider] - 1-2 days Decision Date: 06/08/17 Decision Time: 19:51
[2017-06-08 17:43] LABS: Basophils % (A) 0 %; Eosinophils # (A) 0.2 k/uL (0-0.7); Eosinophils % (A) 1 %; HGB 13.5 gm/dL (11.4-16.0); Lymphocytes # (A) 1.8 k/uL (1.0-4.8); Lymphocytes % (A) 10 %; MCH 26.9 pg (25.0-35.0); MCHC 31.3 g/dL (31.0-37.0); Mean Platelet Volume 6.4; Monocytes # (A) 0.6 k/uL (0-1.0); Monocytes % (A) 3 %; Neutrophils % (A) 85 %; Platelet Count 333 k/uL (150-450); RBC 4.99 m/uL (3.80-5.40); RDW 13.3 % (11.5-15.5); WBC 17.6 k/uL (3.8-10.6)
[2017-06-08 17:48] LABS: Appearance,Urine Clear (Clear); Bacteria,Urine Rare /hpf; Bilirubin,Urine Negative (Negative); Blood,Urine Negative (Negative); Color,Urine Yellow; Glucose,Urine (UA) Negative (Negative); Ketones,Urine Negative (Negative); Leukocyte Esterase,Urine Moderate (Negative); Mucus,Urine Occasional /hpf; PH, Urine 5.5 (5.0-8.0); Protein,Urine Negative (Negative); RBC,Urine <1 /hpf (0-5); Specific Gravity,Urine 1.011 (1.001-1.035); Squamous Epithelial Cell,Urine 4 /hpf (0-4); Urobilinogen,Urine <2.0 mg/dL (<2.0); WBC,Urine 8 /hpf (0-5)
[2017-06-08 17:52] LABS: ALT 38 U/L (9-52); AST 24 U/L (14-36); Albumin 3.8 g/dL (3.5-5.0); Alkaline Phosphatase 89 U/L (38-126); Amylase 55 U/L (30-110); Anion Gap 12 mmol/L; Blood Urea Nitrogen 8 mg/dL (7-17); Calcium 9.1 mg/dL (8.4-10.2); Carbon Dioxide 23 mmol/L (22-30); Chloride 105 mmol/L (98-107); Glucose 92 mg/dL (74-99); Lipase 27 U/L (23-300); Potassium 4.2 mmol/L (3.5-5.1); Sodium 140 mmol/L (137-145); Total Bilirubin 0.4 mg/dL (0.2-1.3); Total Protein 6.9 g/dL (6.3-8.2)
--- NOTE | 2017-06-08 19:24 | CT ---
EXAMINATION TYPE: CT abdomen pelvis w con DATE OF EXAM: 06/08/2017 COMPARISON: NONE HISTORY: ABDOMINAL PAIN X3 DAYS. CT DLP: 1566 mGycm Automated exposure control for dose reduction was used. TECHNIQUE: Helical acquisition of images was performed from the lung bases through the pelvis. CONTRAST: Performed without Oral Contrast and with IV Contrast, patient injected with 100 mL of Omnipaque 300. FINDINGS: LUNG BASES: No significant abnormality is appreciated. LIVER/GB: No significant abnormality is appreciated. PANCREAS: No significant abnormality is seen. SPLEEN: No significant abnormality is seen. ADRENALS: No significant abnormality is seen. KIDNEYS: No significant abnormality is seen. FREE AIR: No free air is visualized. RETROPERITONEAL ADENOPATHY: None visualized REPRODUCTIVE ORGANS: No significant abnormality is seen URINARY BLADDER: No significant abnormality is seen. PELVIC ADENOPATHY: None visualized. OSSEOUS STRUCTURES: No significant abnormality is seen. BOWEL: At the level of the umbilicus and caudally, centered just right of midline, the distal 2 feet of ileum shows moderate circumferential mural thickening. The associated mesentery does not appear t wisted, shows several subcentimeter lymph nodes, and demonstrates subtle edematous reticulation. Ther e is no pneumatosis. There are no associated abnormal gas or fluid collections. The mesenteric arteri al and venous vasculature is negative. The bowel is otherwise unremarkable; appendix is negative. OTHER: The vasculature of the abdomen and pelvis is unremarkable. IMPRESSION: DISTAL SMALL BOWEL MODERATE CIRCUMFERENTIAL MURAL THICKENING, WITH DIFFERENTIAL CONSIDERATIONS INCLUD ING INFLAMMATORY BOWEL, WITH ISCHEMIC ETIOLOGY NEEDING CLINICAL EXCLUSION. RESULTS DISCUSSED WITH ORD ERING PROVIDER IN ORDER TO HELP EXPEDITE MANAGEMENT DECISION MAKING.
[2017-06-08] MEDS ORDERED: NALOXONE 0.4 MG/ML 1 ML VIAL IV PRN (19:51)
[2017-06-08] MEDS ORDERED: ONDANSETRON 4 MG/2 ML VIAL IVP PRN (19:51)
[2017-06-08] MEDS ORDERED: HYDROmorphone 0.5 MG/0.5 ML SYRINGE IVP PRN (19:51)
[2017-06-08] MEDS: SODIUM CHLORIDE 0.9% 1,000 ML IV SCH (20:43)
[2017-06-08 22:46] VITALS: BMI 31.0
[2017-06-09] MEDS: SODIUM CHLORIDE 0.9% 1,000 ML IV SCH ×2 (05:30→21:02)
[2017-06-09 07:25] LABS: Basophils % (A) 0 %; Eosinophils # (A) 0.1 k/uL (0-0.7); Eosinophils % (A) 1 %; HCT 38.4 % (34.0-46.0); HGB 11.8 gm/dL (11.4-16.0); Lymphocytes # (A) 2.4 k/uL (1.0-4.8); Lymphocytes % (A) 18 %; MCH 26.1 pg (25.0-35.0); MCHC 30.9 g/dL (31.0-37.0); MCV 84.7 fL (80.0-100.0); Mean Platelet Volume 6.4; Monocytes # (A) 0.6 k/uL (0-1.0); Monocytes % (A) 5 %; Neutrophils # (A) 10.1 k/uL (1.3-7.7); Neutrophils % (A) 75 %; Platelet Count 318 k/uL (150-450); RBC 4.53 m/uL (3.80-5.40); WBC 13.4 k/uL (3.8-10.6)
[2017-06-09 07:37] LABS: ALT 32 U/L (9-52); AST 21 U/L (14-36); Albumin 2.9 g/dL (3.5-5.0); Alkaline Phosphatase 70 U/L (38-126); Anion Gap 9 mmol/L; Blood Urea Nitrogen 7 mg/dL (7-17); Carbon Dioxide 21 mmol/L (22-30); Chloride 110 mmol/L (98-107); Glucose 80 mg/dL (74-99); Sodium 140 mmol/L (137-145); Total Bilirubin 0.5 mg/dL (0.2-1.3); Total Protein 5.7 g/dL (6.3-8.2)
[2017-06-09] MEDS: PIPERACILLIN-TAZOBACTAM 3.375 GM in DEXTROSE/WATER 1 50ML.BAG IVPB SCH ×2 (15:10→23:20)
--- NOTE | 2017-06-09 15:21 | P.GSHP ---
History of Present Illness H&P Date: 06/09/17 Chief Complaint: Abdominal pain Patient presents to the ER yesterday with a 2-3 day history of abdominal pain. Pain is mid abdomen. Crampy in nature. Was increasing in frequency and severity. No change in bowel habits. Denies diarrhea. No melena or rectal bleeding. No fevers. 1 episode of vomiting yesterday. No history of similar events. No recent travel. No sick contacts. Patient denies any family history of colitis or Crohn's disease. CAT scan was obtained which showed diffuse thickening of the distal ileum. Lab work shows an elevated white blood cell count of 17 down to 13 today. She states she feels much better today. - Review of Systems Comment: The patient denies any acute changes in vision or hearing, no dysphagia or odynophagia, no chest pain or shortness of breath, no dysuria or hematuria, no headache, no runny nose, no rectal bleeding or melena, no unexplained weight loss Past Medical History Past Medical History: No Reported History Additional Past Medical History / Comment(s): OB history: previous spontaneous . Blood type O+ History of Any Multi-Drug Resistant Organisms: None Reported Past Surgical History: Ear Surgery, Orthopedic Surgery Additional Past Surgical History / Comment(s): birthmark removed from back, tubes in ears, ORIF left foot, Past Anesthesia/Blood Transfusion Reactions: No Reported Reaction Past Psychological History: No Psychological Hx Reported Smoking Status: Former smoker Past Alcohol Use History: None Reported Additional Past Alcohol Use History / Comment(s): quit smoking 7 yrs ago, smoked for 3 yrs, < 1 PPD Past Drug Use History: Marijuana - Past Family History Mother History Unknown: Yes Family Medical History: Deep Vein Thrombosis (DVT) Medications and Allergies Home Medications Medication Instructions Recorded Confirmed Type Orsythia-28 1 tab PO DAILY 06/08/17 06/08/17 History Allergies Allergy/AdvReac Type Severity Reaction Status Date / Time No Known Allergies Allergy Verified 06/08/17 16:26 Surgical - Exam Vital Signs Temp Pulse Resp BP Pulse Ox 96.8 F L 102 H 16 124/61 98 06/08/17 16:16 06/08/17 16:16 06/08/17 16:16 06/08/17 16:16 06/08/17 16:16 Physical exam: General: Well-developed, well-nourished HEENT: Normocephalic, sclerae nonicteric Abdomen: Mild diffuse tenderness, nondistended Extremities: No edema Neuro: Alert and oriented Results - Labs 06/09/17 06:57 06/09/17 06:57 Abnormal Lab Results - Last 24 Hours (Table) 06/08/17 06/08/17 06/09/17 Range/Units 17:35 17:35 06:57 WBC 17.6 H 13.4 H (3.8-10.6) k/uL MCHC 30.9 L (31.0-37.0) g/dL Neutrophils # 15.0 H 10.1 H (1.3-7.7) k/uL Chloride (98-107) mmol/L Carbon Dioxide (22-30) mmol/L Calcium (8.4-10.2) mg/dL Total Protein (6.3-8.2) g/dL Albumin (3.5-5.0) g/dL Ur Leukocyte Esterase Moderate H (Negative) Urine WBC 8 H (0-5) /hpf Urine Bacteria Rare H (None) /hpf Urine Mucus Occasional H (None) /hpf 06/09/17 Range/Units 06:57 WBC (3.8-10.6) k/uL MCHC (31.0-37.0) g/dL Neutrophils # (1.3-7.7) k/uL Chloride 110 H (98-107) mmol/L Carbon Dioxide 21 L (22-30) mmol/L Calcium 8.0 L (8.4-10.2) mg/dL Total Protein 5.7 L (6.3-8.2) g/dL Albumin 2.9 L (3.5-5.0) g/dL Ur Leukocyte Esterase (Negative) Urine WBC (0-5) /hpf Urine Bacteria (None) /hpf Urine Mucus (None) /hpf Microbiology - Last 24 Hours (Table) 06/08/17 17:35 Urine Culture - Preliminary Urine,Voided Diabetes panel 06/08/17 06/09/17 Range/Units 17:35 06:57 Sodium 140 140 (137-145) mmol/L Potassium 4.2 4.0 (3.5-5.1) mmol/L Chloride 105 110 H (98-107) mmol/L Carbon Dioxide 23 21 L (22-30) mmol/L BUN 8 7 (7-17) mg/dL Creatinine 0.67 0.60 (0.52-1.04) mg/dL Glucose 92 80 (74-99) mg/dL Calcium 9.1 8.0 L (8.4-10.2) mg/dL AST 24 21 (14-36) U/L ALT 38 32 (9-52) U/L Alkaline Phosphatase 89 70 (38-126) U/L Total Protein 6.9 5.7 L (6.3-8.2) g/dL Albumin 3.8 2.9 L (3.5-5.0) g/dL Calcium panel 06/08/17 06/09/17 Range/Units 17:35 06:57 Calcium 9.1 8.0 L (8.4-10.2) mg/dL Albumin 3.8 2.9 L (3.5-5.0) g/dL Pituitary panel 06/08/17 06/09/17 Range/Units 17:35 06:57 Sodium 140 140 (137-145) mmol/L Potassium 4.2 4.0 (3.5-5.1) mmol/L Chloride 105 110 H (98-107) mmol/L Carbon Dioxide 23 21 L (22-30) mmol/L BUN 8 7 (7-17) mg/dL Creatinine 0.67 0.60 (0.52-1.04) mg/dL Glucose 92 80 (74-99) mg/dL Calcium 9.1 8.0 L (8.4-10.2) mg/dL Adrenal panel 06/08/17 06/09/17 Range/Units 17:35 06:57 Sodium 140 140 (137-145) mmol/L Potassium 4.2 4.0 (3.5-5.1) mmol/L Chloride 105 110 H (98-107) mmol/L Carbon Dioxide 23 21 L (22-30) mmol/L BUN 8 7 (7-17) mg/dL Creatinine 0.67 0.60 (0.52-1.04) mg/dL Glucose 92 80 (74-99) mg/dL Calcium 9.1 8.0 L (8.4-10.2) mg/dL Total Bilirubin 0.4 0.5 (0.2-1.3) mg/dL AST 24 21 (14-36) U/L ALT 38 32 (9-52) U/L Alkaline Phosphatase 89 70 (38-126) U/L Total Protein 6.9 5.7 L (6.3-8.2) g/dL Albumin 3.8 2.9 L (3.5-5.0) g/dL Assessment and Plan (1) Enteritis Narrative/Plan: CAT scan shows enteritis. Etiology unclear but may represent a viral illness or inflammatory bowel disease. Bacterial infection less likely but we'll empirically start IV antibiotics. Recheck lab work tomorrow. Begin full liquid diet. Patient will require colonoscopy either later during this hospitalization or as an outpatient. Current Visit: Yes Status: Acute Code(s): K52.9 - NONINFECTIVE GASTROENTERITIS AND COLITIS, UNSPECIFIED SNOMED Code(s): 90549586
--- NOTE | 2017-06-09 16:43 | P.CONS ---
History of Present Illness - Reason for Consult Consult date: 06/09/17 medical management - History of Present Illness This is a pleasant 22-year-old white female patient admitted for abdominal pain for the past several days. Worsened and brought her in emergency room. She had one episode of emesis. She was seen by Dr. Raymond Etienne. His review indicates she has an enteritis. He is continue to observe her and advance her diet. Compared to the past several days, she is much improved. At this time, she denies any chest pains, pressures, shortness of breath, nausea , recent vomiting. She is tolerating clear liquids. Of note is in order haitian fries on the nightstand. Review of Systems All systems: negative Past Medical History Past Medical History: No Reported History Additional Past Medical History / Comment(s): OB history: previous spontaneous . Blood type O+ History of Any Multi-Drug Resistant Organisms: None Reported Past Surgical History: Ear Surgery, Orthopedic Surgery Additional Past Surgical History / Comment(s): birthmark removed from back, tubes in ears, ORIF left foot, Past Anesthesia/Blood Transfusion Reactions: No Reported Reaction Past Psychological History: No Psychological Hx Reported Smoking Status: Former smoker Past Alcohol Use History: None Reported Additional Past Alcohol Use History / Comment(s): quit smoking 7 yrs ago, smoked for 3 yrs, < 1 PPD Past Drug Use History: Marijuana - Past Family History Mother History Unknown: Yes Family Medical History: Deep Vein Thrombosis (DVT) Medications and Allergies Home Medications Medication Instructions Recorded Confirmed Type Orsythia-28 1 tab PO DAILY 06/08/17 06/08/17 History Allergies Allergy/AdvReac Type Severity Reaction Status Date / Time No Known Allergies Allergy Verified 06/08/17 16:26 Physical Exam Vitals: Vital Signs Temp Pulse Pulse Resp BP BP Pulse Ox 06/09/17 15:07 98.3 F 104 H 16 109/62 98 06/09/17 07:30 98.7 F 96 16 106/56 98 06/08/17 21:27 99 16 115/59 100 06/08/17 18:46 98.1 F 104 H 18 122/58 100 06/08/17 17:41 77 18 105/53 99 Intake and Output 06/09/17 06/09/17 06/09/17 06:59 14:59 22:59 Intake Total 846 118 Balance 846 118 Intake: Intake, IV Titration 846 Amount Sodium Chloride 0.9% 1, 846 000 ml @ 100 mls/hr IV . Q10H [facility] Rx#:[id number] Oral 118 Other: # Voids 1 2 GENERAL: Well-appearing, well-nourished and in no acute distress. HEAD: Atraumatic, normocephalic. EYES: Pupils equal round and reactive to light, extraocular movements intact, sclera anicteric, conjunctiva are normal. ENT:nares patent, oropharynx clear without exudates. Moist mucous membranes. NECK: Normal range of motion, supple without lymphadenopathy or JVD, no thyromegaly LUNGS: Breath sounds clear to auscultation bilaterally and equal. No wheezes rales or rhonchi. HEART: Regular rate and rhythm without murmurs, rubs or gallops.S1S2 Normal ABDOMEN: Soft, nontender, normoactive bowel sounds. No guarding, no rebound. No masses appreciated. EXTREMITIES: Normal range of motion, no pitting or edema. No clubbing or cyanosis. NEUROLOGICAL: Cranial nerves II through XII grossly intact. Normal speech, normal gait. PSYCH: Normal mood, normal affect. SKIN: Warm, Dry, normal turgor, no rashes or lesions noted. Results CBC & Chem 7: 06/09/17 06:57 06/09/17 06:57 Labs: Abnormal Lab Results - Last 24 Hours (Table) 06/08/17 06/08/17 06/09/17 Range/Units 17:35 17:35 06:57 WBC 17.6 H 13.4 H (3.8-10.6) k/uL MCHC 30.9 L (31.0-37.0) g/dL Neutrophils # 15.0 H 10.1 H (1.3-7.7) k/uL Chloride (98-107) mmol/L Carbon Dioxide (22-30) mmol/L Calcium (8.4-10.2) mg/dL Total Protein (6.3-8.2) g/dL Albumin (3.5-5.0) g/dL Ur Leukocyte Esterase Moderate H (Negative) Urine WBC 8 H (0-5) /hpf Urine Bacteria Rare H (None) /hpf Urine Mucus Occasional H (None) /hpf 02/23/18 Range/Units 06:57 WBC (3.8-10.6) k/uL MCHC (31.0-37.0) g/dL Neutrophils # (1.3-7.7) k/uL Chloride 110 H (98-107) mmol/L Carbon Dioxide 21 L (22-30) mmol/L Calcium 8.0 L (8.4-10.2) mg/dL Total Protein 5.7 L (6.3-8.2) g/dL Albumin 2.9 L (3.5-5.0) g/dL Ur Leukocyte Esterase (Negative) Urine WBC (0-5) /hpf Urine Bacteria (None) /hpf Urine Mucus (None) /hpf Microbiology - Last 24 Hours (Table) 06/08/17 17:35 Urine Culture - Preliminary Urine,Voided Assessment and Plan (1) Enteritis Current Visit: Yes Status: Acute Code(s): K52.9 - NONINFECTIVE GASTROENTERITIS AND COLITIS, UNSPECIFIED SNOMED Code(s): 85272430 Plan: Patient is admitted to general surgery. Her symptoms are overall improved. CT was reviewed as was Dr. Etienne's notes. She remains on antibiotics of Zosyn, Zofran for nausea. She has no other complaints at this time is tolerating clear liquid diet. It is being advanced as tolerated by Dr. Etienne. Patient does have a white count, left shift consistent with enteritis. Thank you allowing us to participate in her care.
[2017-06-10] MEDS: SODIUM CHLORIDE 0.9% 1,000 ML IV SCH (01:39)
[2017-06-10 07:42] LABS: Basophils % (A) 0 %; Eosinophils # (A) 0.2 k/uL (0-0.7); Eosinophils % (A) 2 %; HCT 36.9 % (34.0-46.0); HGB 11.5 gm/dL (11.4-16.0); Lymphocytes # (A) 2.4 k/uL (1.0-4.8); Lymphocytes % (A) 26 %; MCH 26.4 pg (25.0-35.0); MCHC 31.2 g/dL (31.0-37.0); MCV 84.5 fL (80.0-100.0); Mean Platelet Volume 6.5; Monocytes # (A) 0.5 k/uL (0-1.0); Monocytes % (A) 5 %; Neutrophils # (A) 6.2 k/uL (1.3-7.7); Neutrophils % (A) 66 %; Platelet Count 301 k/uL (150-450); RBC 4.37 m/uL (3.80-5.40); RDW 13.1 % (11.5-15.5); WBC 9.4 k/uL (3.8-10.6)
[2017-06-10] MEDS: PIPERACILLIN-TAZOBACTAM 3.375 GM in DEXTROSE/WATER 1 50ML.BAG IVPB SCH (08:29)
[2017-06-10] MEDS ORDERED: ORSYTHIA PO SCH (09:00)
[2017-06-10 10:04] VITALS: BP 97/63; PULSE 64; RESP 18; TEMP 98.7
[2017-06-10 10:58] LABS: Erythrocyte Sedimentation Rate 24 mm/hr (0-20)
--- NOTE | 2017-06-10 12:35 | P.DS ---
Providers Date of admission: 06/08/17 20:08 Expected date of discharge: 06/10/17 Attending physician: Rocco Etienne Consults: 06/09/17 12:32 Consult Physician Routine Consulting Provider: Reilly Rowley Jr Consult Reason/Comments: medical management Do you want consulting provider notified?: Yes Primary care physician: Stated None - Discharge Diagnosis(es) (1) Enteritis Patient admitted with abdominal pain. Computed tomography scan shows distal ileal enteritis. Patient has done well since admission. Her pain is now resolved. White blood cell count normal. ESR and CRP both normal. Abdomen soft: Nontender, nondistended Will plan discharge today. Plan outpatient follow -up followed by colonoscopy. Current Visit: Yes Status: Acute Patient Condition at Discharge: Stable Plan - Discharge Summary Discharge Rx Participant: Yes New Discharge Prescriptions: No Action Orsythia-28 1 tab PO DAILY Discharge Medication List Orsythia-28 1 tab PO DAILY 06/08/17 [History] Follow up Appointment(s)/Referral(s): None,Stated [Primary Care Provider] - 1-2 days Rocco Etienne MD [Medical Doctor] - 1 Week
== END 2017-06-10 13:55 | disposition home or self-care (01) ==
LOC: EC 16:07 → 3SUR 20:08
PROVIDERS: ADMIT Surgery; ATTEND Surgery
DX: K52.9 Noninfective gastroenteritis and colitis, unspecified (principal); Z79.3 Long term (current) use of hormonal contraceptives; Z87.891 Personal history of nicotine dependence; Z87.59 Personal history of other complications of pregnancy, childbirth and the puerperium; Z82.49 Family history of ischemic heart disease and other diseases of the circulatory system
CPT/HCPCS: 99285 ×2; 96361 ×5; 96365; 96366 ×2; 36415; 80053 ×2; 85652; 82150; 83690; 85025 ×3; 86140; 81001; 81025; 87086; 74177; G0378 ×3; J2543 ×2; Q9967; J1170

== ENCOUNTER 2018-01-10 09:00 | Day surgery (SDC) | payer OTHER ==
[2018-01-08 12:07] VITALS: BMI 34.3
[~2018-01-10 09:00] MED LIST: LACTATED RINGERS 1,000 ML IV SCH
[2018-01-10 09:41] VITALS: RESP 16; TEMP 98
[2018-01-10] MEDS ORDERED: LIDOCAINE 1% INJ 10MG/ML (20 ML MDV) ONE (09:44)
[2018-01-10] MEDS ORDERED: PROPOFOL 10 MG/ML 20 ML VIAL IV ONE ×2 (09:44→10:07)
[2018-01-10] MEDS ORDERED: LIDOCAINE 1% 20 ML VIAL (10MG/ML) FOR IV START INTRADERMA ONE (09:52)
--- NOTE | 2018-01-10 10:29 | P.PCN ---
Date of Procedure: 01/10/18 Procedure(s) Performed: PREOPERATIVE DIAGNOSIS: Ileitis POSTOPERATIVE DIAGNOSIS: Normal exam PROCEDURE: Colonoscopy with biopsy ANESTHESIA: MAC SURGEON: Rocco Etienne M.D. SPECIMENS: Ileum ENDOSCOPIC PROCEDURE: The patient was placed on the endoscopy table in the left decubitus position. The Olympus colonoscope was inserted into the anus and passed under direct visualization to the base of the cecum. The appendiceal orifice was visualized. The terminal ileum was inspected. No definite inflammatory changes were seen. Biopsies were taken. From that point the scope was slowly withdrawn inspecting all surfaces carefully. There were no neoplastic inflammatory or polypoid lesions throughout the cecum, ascending, transverse, descending, sigmoid and rectum. There was no diverticulosis noted. Digital rectal examination was normal. The patient was taken to the recovery room in stable condition per anesthesia guidelines. RECOMMENDATIONS: Await biopsy results. Resume diet.
[2018-01-10 10:30] VITALS: BP 126/57; PULSE 82
== END 2018-01-10 10:59 | disposition home or self-care (01) ==
LOC: ORWHC2ENDO 09:00
PROVIDERS: ATTEND Surgery
DX: K52.9 Noninfective gastroenteritis and colitis, unspecified (principal)
CPT/HCPCS: 81025; 88305; 45380; J2001; J2704

== ENCOUNTER 2018-01-20 07:39 | Emergency (ER) | payer OTHER ==
[2018-01-20] MEDS ORDERED: SODIUM CHLORIDE 0.9% 1,000 ML IV STA (08:14)
[2018-01-20] MEDS ORDERED: ONDANSETRON 4 MG/2 ML VIAL IVP STA (08:14)
--- NOTE | 2018-01-20 08:17 | ED ---
General Adult HPI - General Chief complaint: Abdominal Pain Stated complaint: Stomach pain Time Seen by Provider: 01/20/18 08:08 Source: patient, RN notes reviewed Mode of arrival: ambulatory Limitations: no limitations - History of Present Illness Initial comments: Patient 22-year-old female presented to the emergency room today with chief complaint of abdominal pain over the last 3 or 4 days. She does admit to cramping type pain to lower abdomen. Does admit to nausea. States that she had an episode of vomiting this morning. Patient states symptoms feel similar to symptoms that she had the past with an ileitis. Patient denies any other complaints or symptoms at this time. Patient does admit to recent colonoscopy approximately one week ago states she was told that everything was normal. Patient denies any recent fever, chills, shortness of breath, chest pain, numbness or tingling, dysuria or hematuria, constipation or diarrhea, headaches or visual changes, or any other complaints. - Related Data Previous Rx's Medication Instructions Recorded Ondansetron Odt [Zofran ODT] 4 mg PO Q8HR PRN #20 tab 01/20/18 Allergies Allergy/AdvReac Type Severity Reaction Status Date / Time No Known Allergies Allergy Verified 01/20/18 07:43 Review of Systems ROS Statement: Those systems with pertinent positive or pertinent negative responses have been documented in the HPI. ROS Other: All systems not noted in ROS Statement are negative. Past Medical History Past Medical History: No Reported History Additional Past Medical History / Comment(s): OB history: previous spontaneous . Blood type O+. ILEITIS. History of Any Multi-Drug Resistant Organisms: None Reported Past Surgical History: Ear Surgery, Orthopedic Surgery Additional Past Surgical History / Comment(s): Birthmark removed from back. BMT. ORIF left foot. D&C. Past Anesthesia/Blood Transfusion Reactions: No Reported Reaction, Motion Sickness Past Psychological History: No Psychological Hx Reported Smoking Status: Former smoker Past Alcohol Use History: None Reported Past Drug Use History: None Reported - Past Family History Mother History Unknown: Yes Family Medical History: Deep Vein Thrombosis (DVT) General Exam - General Exam Comments Initial Comments: General: The patient is awake and alert, in no distress, and does not appear acutely ill. Eye: Extra-ocular movements are intact. No nystagmus. There is normal conjunctiva bilaterally. No signs of icterus. Ears, nose, mouth and throat: There are moist mucous membranes and no oral lesions. Neck: The neck is supple, there is no tenderness or JVD. Cardiovascular: There is a regular rate and rhythm. No murmur, rub or gallop is appreciated. Respiratory: Lungs are clear to auscultation, respirations are non-labored, breath sounds are equal. No wheezes, stridor, rales, or rhonchi. Gastrointestinal: Abdomen soft on palpation. Mild tenderness lower abdomen. No rebound, guarding or CVA tenderness. Musculoskeletal: Normal ROM, no tenderness. Sensation intact. Strength 5/5. Pulses equal bilaterally 2+. Neurological: A&O x 3. CN II-XII intact, There are no obvious motor or sensory deficits. Coordination appears grossly intact. Speech is normal. Skin: Skin is warm and dry and no rashes or lesions are noted. Psychiatric: Cooperative, appropriate mood & affect, normal judgment. Limitations: no limitations Course Vital Signs 01/20/18 07:42 Temperature 98.3 F Pulse Rate 80 Respiratory 20 Rate Blood Pressure 114/71 O2 Sat by Pulse 99 Oximetry Medical Decision Making - Medical Decision Making Patient reexamined at this time shows no signs of distress. Abdomen soft on palpation. Patient does have white count of 11,000. Previous labs were reviewed and showed similar findings which much higher white count at the time when she had the ileitis. At this time her abdomen is soft. There is no fever. She is resting comfortably. She does admit to feeling better here in the emergency room after Zofran. He was discussed about his computed tomography scan. Risk and benefits were discussed with the patient. She feels comfortable being discharged home to follow up with her surgeon. She is advised that she should return here to the emergency room if any symptoms increase worsen. She states understanding and is in agreement. - Lab Data Result diagrams: 01/20/18 07:50 01/20/18 07:50 Lab Results 01/20/18 01/20/18 01/20/18 Range/Units 07:50 07:50 07:50 WBC 11.7 H (3.8-10.6) k/uL RBC 5.21 (3.80-5.40) m/uL Hgb 13.6 (11.4-16.0) gm/dL Hct 42.3 (34.0-46.0) % MCV 81.2 (80.0-100.0) fL MCH 26.0 (25.0-35.0) pg MCHC 32.0 (31.0-37.0) g/dL RDW 13.6 (11.5-15.5) % Plt Count 336 (150-450) k/uL Neutrophils % 73 % Lymphocytes % 20 % Monocytes % 5 % Eosinophils % 1 % Basophils % 0 % Neutrophils # 8.6 H (1.3-7.7) k/uL Lymphocytes # 2.4 (1.0-4.8) k/uL Monocytes # 0.5 (0-1.0) k/uL Eosinophils # 0.1 (0-0.7) k/uL Basophils # 0.0 (0-0.2) k/uL Sodium 142 (137-145) mmol/L Potassium 4.1 (3.5-5.1) mmol/L Chloride 107 (98-107) mmol/L Carbon Dioxide 25 (22-30) mmol/L Anion Gap 10 mmol/L BUN 9 (7-17) mg/dL Creatinine 0.66 (0.52-1.04) mg/dL Est GFR (CKD-EPI)AfAm >90 (>60 ml/min/1.73 sqM) Est GFR (CKD-EPI)NonAf >90 (>60 ml/min/1.73 sqM) Glucose 102 H (74-99) mg/dL Plasma Lactic Acid [place] (0.7-2.0) mmol/L Calcium 8.9 (8.4-10.2) mg/dL Total Bilirubin 0.5 (0.2-1.3) mg/dL AST 17 (14-36) U/L ALT 17 (9-52) U/L Alkaline Phosphatase 97 (38-126) U/L Total Protein 6.9 (6.3-8.2) g/dL Albumin 3.7 (3.5-5.0) g/dL Amylase 59 (30-110) U/L Lipase 37 (23-300) U/L Urine Color Urine Appearance (Clear) Urine pH (5.0-8.0) Ur Specific [place] (1.001-1.035) Urine Protein (Negative) Urine Glucose (UA) (Negative) Urine Ketones (Negative) Urine Blood (Negative) Urine Nitrite (Negative) Urine Bilirubin (Negative) Urine Urobilinogen (<2.0) mg/dL Ur Leukocyte Esterase (Negative) Urine RBC (0-5) /hpf Urine WBC (0-5) /hpf Ur Squamous Epith Cells (0-4) /hpf Urine Bacteria (None) /hpf Urine Mucus (None) /hpf Urine HCG, Qual Not Detected (Not Detectd) 01/20/18 01/20/18 Range/Units 07:50 07:50 WBC (3.8-10.6) k/uL RBC (3.80-5.40) m/uL Hgb (11.4-16.0) gm/dL Hct (34.0-46.0) % MCV (80.0-100.0) fL MCH (25.0-35.0) pg MCHC (31.0-37.0) g/dL RDW (11.5-15.5) % Plt Count (150-450) k/uL Neutrophils % % Lymphocytes % % Monocytes % % Eosinophils % % Basophils % % Neutrophils # (1.3-7.7) k/uL Lymphocytes # (1.0-4.8) k/uL Monocytes # (0-1.0) k/uL Eosinophils # (0-0.7) k/uL Basophils # (0-0.2) k/uL Sodium (137-145) mmol/L Potassium (3.5-5.1) mmol/L Chloride (98-107) mmol/L Carbon Dioxide (22-30) mmol/L Anion Gap mmol/L BUN (7-17) mg/dL Creatinine (0.52-1.04) mg/dL Est GFR (CKD-EPI)AfAm (>60 ml/min/1.73 sqM) Est GFR (CKD-EPI)NonAf (>60 ml/min/1.73 sqM) Glucose (74-99) mg/dL Plasma Lactic Acid [place] 0.9 (0.7-2.0) mmol/L Calcium (8.4-10.2) mg/dL Total Bilirubin (0.2-1.3) mg/dL AST (14-36) U/L ALT (9-52) U/L Alkaline Phosphatase (38-126) U/L Total Protein (6.3-8.2) g/dL Albumin (3.5-5.0) g/dL Amylase (30-110) U/L Lipase (23-300) U/L Urine Color Yellow Urine Appearance Cloudy H (Clear) Urine pH 6.0 (5.0-8.0) Ur Specific [place] 1.023 (1.001-1.035) Urine Protein Trace H (Negative) Urine Glucose (UA) Negative (Negative) Urine Ketones Negative (Negative) Urine Blood Trace H (Negative) Urine Nitrite Negative (Negative) Urine Bilirubin Negative (Negative) Urine Urobilinogen <2.0 (<2.0) mg/dL Ur Leukocyte Esterase Trace H (Negative) Urine RBC 6 H (0-5) /hpf Urine WBC 3 (0-5) /hpf Ur Squamous Epith Cells 8 H (0-4) /hpf Urine Bacteria Rare H (None) /hpf Urine Mucus Few H (None) /hpf Urine HCG, Qual (Not Detectd) Disposition Clinical Impression: Abdominal pain Disposition: HOME SELF-CARE Condition: Good Instructions: Abdominal Pain (ED) Additional Instructions: Please use medication as discussed. Please follow-up with surgeon/family doctor in the next 2 days of symptoms have not improved. Please return to emergency room if the symptoms increase or worsen or for any other concerns. Prescriptions: Ondansetron Odt [Zofran ODT] 4 mg PO Q8HR PRN #20 tab PRN Reason: Nausea Is patient prescribed a controlled substance at d/c from ED?: No Referrals: None,Stated [Primary Care Provider] - 1-2 days Rocco Etienne MD [Medical Doctor] - 1-2 days Time of Disposition: 09:10
[2018-01-20 08:23] LABS: Basophils % (A) 0 %; Eosinophils # (A) 0.1 k/uL (0-0.7); Eosinophils % (A) 1 %; HCT 42.3 % (34.0-46.0); HGB 13.6 gm/dL (11.4-16.0); Lymphocytes # (A) 2.4 k/uL (1.0-4.8); Lymphocytes % (A) 20 %; MCV 81.2 fL (80.0-100.0); Mean Platelet Volume 6.4; Monocytes # (A) 0.5 k/uL (0-1.0); Monocytes % (A) 5 %; Neutrophils # (A) 8.6 k/uL (1.3-7.7); Neutrophils % (A) 73 %; Platelet Count 336 k/uL (150-450); RBC 5.21 m/uL (3.80-5.40); RDW 13.6 % (11.5-15.5); WBC 11.7 k/uL (3.8-10.6)
[2018-01-20 08:29] LABS: Appearance,Urine Cloudy (Clear); Bacteria,Urine Rare /hpf; Bilirubin,Urine Negative (Negative); Blood,Urine Trace (Negative); Color,Urine Yellow; Glucose,Urine (UA) Negative (Negative); Ketones,Urine Negative (Negative); Leukocyte Esterase,Urine Trace (Negative); Mucus,Urine Few /hpf; Nitrite,Urine Negative (Negative); Protein,Urine Trace (Negative); RBC,Urine 6 /hpf (0-5); Specific Gravity,Urine 1.023 (1.001-1.035); Squamous Epithelial Cell,Urine 8 /hpf (0-4); Urobilinogen,Urine <2.0 mg/dL (<2.0); WBC,Urine 3 /hpf (0-5)
[2018-01-20 08:37] LABS: ALT 17 U/L (9-52); AST 17 U/L (14-36); Albumin 3.7 g/dL (3.5-5.0); Alkaline Phosphatase 97 U/L (38-126); Amylase 59 U/L (30-110); Anion Gap 10 mmol/L; Blood Urea Nitrogen 9 mg/dL (7-17); Calcium 8.9 mg/dL (8.4-10.2); Carbon Dioxide 25 mmol/L (22-30); Chloride 107 mmol/L (98-107); Glucose 102 mg/dL (74-99); Lipase 37 U/L (23-300); Potassium 4.1 mmol/L (3.5-5.1); Sodium 142 mmol/L (137-145); Total Bilirubin 0.5 mg/dL (0.2-1.3); Total Protein 6.9 g/dL (6.3-8.2)
[2018-01-20 09:19] VITALS: BP 124/64; PULSE 78; RESP 18; TEMP 97
== END 2018-01-20 09:15 | disposition home or self-care (01) ==
LOC: EC 07:39
DX: R10.30 Lower abdominal pain, unspecified (principal); R11.2 Nausea with vomiting, unspecified; Z87.891 Personal history of nicotine dependence
CPT/HCPCS: 36415; 80053; 82150; 83605; 83690; 85025; 81001; 81025; 87086; 99284; 96374; 96361; J2405

== ENCOUNTER 2018-05-13 20:42 | Emergency (ER) | payer OTHER ==
[2018-05-13 20:59] VITALS: BP 113/75; PULSE 105; RESP 18; TEMP 98.2
--- NOTE | 2018-05-13 21:29 | ED ---
Skin/Abscess/FB HPI - General Chief complaint: Skin/Abscess/Foreign Body Stated complaint: Abscess Time Seen by Provider: 05/13/18 21:06 Source: patient Mode of arrival: ambulatory Limitations: no limitations - History of Present Illness Initial comments: 23-year-old female presents of lump on her back for last few days. Patient states it's tender. Patient's about 9 or 10 weeks and states last time she was this occurred as well. Patient states she had it drained and had antibiotics. Patient states she always has a small lump there. No fever or chills. Patient states any drainage at this time. No history of MRSA. MD complaint: lesion (back) -: days(s) (3) Location: back - Related Data Previous Rx's Medication Instructions Recorded Cephalexin [Keflex] 500 mg PO Q8HR #30 cap 05/13/18 Allergies Allergy/AdvReac Type Severity Reaction Status Date / Time No Known Allergies Allergy Verified 05/13/18 20:58 Review of Systems ROS Statement: Those systems with pertinent positive or pertinent negative responses have been documented in the HPI. ROS Other: All systems not noted in ROS Statement are negative. Constitutional: Denies: fever Skin: Reports: lesions (back) Past Medical History Past Medical History: No Reported History Additional Past Medical History / Comment(s): OB history: previous spontaneous . Blood type O+. ILEITIS. History of Any Multi-Drug Resistant Organisms: None Reported Past Surgical History: Ear Surgery, Orthopedic Surgery Additional Past Surgical History / Comment(s): Birthmark removed from back. BMT. ORIF left foot. D&C. Past Anesthesia/Blood Transfusion Reactions: No Reported Reaction, Motion Sickness Past Psychological History: No Psychological Hx Reported Smoking Status: Former smoker Past Alcohol Use History: None Reported Past Drug Use History: None Reported - Past Family History Mother History Unknown: Yes Family Medical History: Deep Vein Thrombosis (DVT) General Exam Limitations: no limitations General appearance: alert, in no apparent distress Respiratory exam: Present: normal lung sounds bilaterally. Absent: respiratory distress, wheezes, rales, rhonchi, stridor Cardiovascular Exam: Present: regular rate, normal rhythm, normal heart sounds. Absent: systolic murmur, diastolic murmur, rubs, gallop, clicks Neurological exam: Present: alert, oriented X3, CN II-XII intact Psychiatric exam: Present: normal affect, normal mood Skin exam: Present: warm (1 cm indurated lesion, mild redness), dry, intact, normal color. Absent: rash Course Vital Signs 05/13/18 20:55 Temperature 98.2 F Pulse Rate 105 H Respiratory 18 Rate Blood Pressure 113/75 O2 Sat by Pulse 98 Oximetry Procedures - Procedures Initial comment: pt was prepped an draped appropriately, 18 ga used with slight bloody and slightly pustular material obtained . culture sent . bacitracin and dressing. pt tolerated procedure well Medical Decision Making - Medical Decision Making Discussed with patient the need for close follow-up. Patient to take antibiotics as directed. Patient use warm compresses. Follow-up if not improving may need general surgery to remove underlying cyst in the near future Disposition Clinical Impression: Infected cyst of skin Disposition: HOME SELF-CARE Condition: Good Instructions (If sedation given, give patient instructions): Cyst (ED) Prescriptions: Cephalexin [Keflex] 500 mg PO Q8HR #30 cap Is patient prescribed a controlled substance at d/c from ED?: No Referrals: None,Stated [Primary Care Provider] - 1-2 days Ananda Cameron MD [STAFF PHYSICIAN] - 1-2 days Time of Disposition: 21:33
== END 2018-05-13 21:48 | disposition home or self-care (01) ==
LOC: EC 20:42
DX: L72.9 Follicular cyst of the skin and subcutaneous tissue, unspecified (principal); Z87.891 Personal history of nicotine dependence
CPT/HCPCS: 10060; 87070; 87205; 99283

== ENCOUNTER → 2018-05-18 | Outpatient (CLI) | payer OTHER ==
--- NOTE | 2018-05-18 09:09 | US ---
EXAMINATION TYPE: Transabdominal DATE OF EXAM: 07/18/17 COMPARISON: NONE CLINICAL HISTORY: Z36 Confirm dates. dates EXAM PERFORMED: Transabdominal (TA) EXAM MEASUREMENTS: GESTATIONAL AGE / DATING Dates by LMP: (10 weeks/3 days) EDC: 12/11/2018 Dates by Current Scan: (11 weeks/1 days) EDC: 12/06/2018 MATERNAL ANATOMY Uterus: 14.5 x 8.0 x 5.9 cm Right Ovary: 3.4 x 2.1 x1.6 cm Left Ovary: 2.6 x 1.5 x 1.2 cm Post CDS / Adnexa: no free fluid Presence of free fluid: no Presence of corpus luteal cyst: no Presence of subchorionic bleed: no GESTATION / SURVEY CRL: 4.2 cm (11 weeks/1 days) MSD: seen, not measured Yolk Sac (normal less than 6mm): not visualized Heart Rate: 174 bpm Rhythm: Normal IUP: Viable IUP Date of LMP: 03/06/2018, A2 Beta HcG (if available): Not available at this time Single live IUP measuring 11 weeks 1 day IMPRESSION: Single live IUP measuring 11 weeks 1 day
== END | disposition home or self-care (01) ==
LOC: RADUSWWP 08:07
PROVIDERS: ATTEND Obstetrics & Gynecology
DX: Z36.9 Encounter for antenatal screening, unspecified (principal); Z3A.11 11 weeks gestation of pregnancy
CPT/HCPCS: 76801

== ENCOUNTER 2018-06-14 19:04 | Emergency (ER) | payer OTHER ==
[2018-06-14 20:11] VITALS: RESP 18
[2018-06-14 21:38] LABS: Appearance,Urine Clear (Clear); Bilirubin,Urine Negative (Negative); Blood,Urine Negative (Negative); Color,Urine Light Yellow; Glucose,Urine (UA) Negative (Negative); Ketones,Urine Negative (Negative); Leukocyte Esterase,Urine Negative (Negative); Nitrite,Urine Negative (Negative); PH, Urine 6.5 (5.0-8.0); Protein,Urine Negative (Negative); Specific Gravity,Urine 1.005 (1.001-1.035); Urobilinogen,Urine <2.0 mg/dL (<2.0)
--- NOTE | 2018-06-14 22:08 | ED ---
Abdominal Pain HPI - General Chief Complaint: Abdominal Pain Stated Complaint: Cramping-15 wks pg Time Seen by Provider: 06/14/18 21:18 Source: patient, RN notes reviewed, old records reviewed Mode of arrival: ambulatory Limitations: no limitations - History of Present Illness Initial Comments: This is a 23-year-old female the ER for evaluation, patient is presenting for evaluation of abdominal pain. Abdominal pain and . Patient is 15 weeks admits to mild anxiety. She states her pain is not really pain more like cramping abdominal cramping. Cramping. No fevers no nausea vomiting no bowel or bladder issues. No dysuria. Is feeling fine with family encouraged her to come and evaluated today. This point patient has no problems or complications with . MD Complaint: abdominal pain, other (Positive ) -: hour(s), days(s) Location: diffuse Radiation: none Migration to: no migration Severity: mild Severity scale (1-10): 2 Quality: cramping Consistency: intermittent Improves With: nothing Worsens With: nothing Context: other (Positive ) Associated Symptoms: denies other symptoms - Related Data Home Medications Medication Instructions Recorded Confirmed Pnv No.95/Ferrous Fum/Folic AC 1 tab PO DAILY 06/14/18 06/14/18 [ Multivitamin Tablet] Allergies Allergy/AdvReac Type Severity Reaction Status Date / Time No Known Allergies Allergy Verified 06/14/18 21:25 Review of Systems ROS Statement: Those systems with pertinent positive or pertinent negative responses have been documented in the HPI. ROS Other: All systems not noted in ROS Statement are negative. Past Medical History Past Medical History: No Reported History Additional Past Medical History / Comment(s): OB history: previous spontaneous . Blood type O+. ILEITIS. History of Any Multi-Drug Resistant Organisms: None Reported Past Surgical History: Ear Surgery, Orthopedic Surgery Additional Past Surgical History / Comment(s): Birthmark removed from back. BMT. ORIF left foot. D&C. Past Anesthesia/Blood Transfusion Reactions: No Reported Reaction, Motion Sickness Past Psychological History: No Psychological Hx Reported Smoking Status: Former smoker Past Alcohol Use History: None Reported Past Drug Use History: None Reported - Past Family History Mother History Unknown: Yes Family Medical History: Deep Vein Thrombosis (DVT) General Exam Limitations: no limitations General appearance: alert, in no apparent distress Head exam: Present: atraumatic, normocephalic, normal inspection Eye exam: Present: normal appearance, PERRL, EOMI. Absent: scleral icterus, conjunctival injection, periorbital swelling ENT exam: Present: normal exam, mucous membranes moist Neck exam: Present: normal inspection. Absent: tenderness, meningismus, lymphadenopathy Respiratory exam: Present: normal lung sounds bilaterally. Absent: respiratory distress, wheezes, rales, rhonchi, stridor Cardiovascular Exam: Present: regular rate, normal rhythm, normal heart sounds. Absent: systolic murmur, diastolic murmur, rubs, gallop, clicks GI/Abdominal exam: Present: soft, normal bowel sounds. Absent: distended, tenderness, guarding, rebound, rigid Extremities exam: Present: normal inspection, full ROM, normal capillary refill. Absent: tenderness, pedal edema, joint swelling, calf tenderness Back exam: Present: normal inspection Neurological exam: Present: alert, oriented X3, CN II-XII intact Psychiatric exam: Present: normal affect, normal mood Skin exam: Present: warm, dry, intact, normal color. Absent: rash Course Vital Signs 06/14/18 06/14/18 20:07 22:44 Temperature 98.1 F 98.0 F Pulse Rate 112 H 103 H Respiratory 18 18 Rate Blood Pressure 143/81 117/67 O2 Sat by Pulse 99 100 Oximetry - Reevaluation(s) Reevaluation #1: 06/14/18 22:07 Medical record reviewed Reevaluation #2: 06/14/18 22:07 No tenderness to palpation again appreciated Medical Decision Making - Medical Decision Making 23 female the ER for evaluation of pain and . Cramping. Ultrasound is negative normal for acute IUP. Ultrasound shows positive IUP. Patient can be discharged home - Lab Data Lab Results 06/14/18 Range/Units 21:26 Urine Color Light Yellow Urine Appearance Clear (Clear) Urine pH 6.5 (5.0-8.0) Ur Specific [place] 1.005 (1.001-1.035) Urine Protein Negative (Negative) Urine Glucose (UA) Negative (Negative) Urine Ketones Negative (Negative) Urine Blood Negative (Negative) Urine Nitrite Negative (Negative) Urine Bilirubin Negative (Negative) Urine Urobilinogen <2.0 (<2.0) mg/dL Ur Leukocyte Esterase Negative (Negative) - Radiology Data Radiology results: report reviewed (Ultrasound shows positive IUP), image reviewed Disposition Clinical Impression: Abdominal pain affecting Disposition: HOME SELF-CARE Condition: Good Instructions (If sedation given, give patient instructions): Abdominal Pain in (ED) Is patient prescribed a controlled substance at d/c from ED?: No Referrals: None,Stated [Primary Care Provider] - 1-2 days
[2018-06-14 22:50] VITALS: BP 117/67; PULSE 103; TEMP 98
--- NOTE | 2018-06-14 23:51 | US ---
EXAM: US After First Trimester, Transabdominal CLINICAL HISTORY: Reason: Pain TECHNIQUE: Real-time transabdominal obstetrical ultrasound of the maternal pelvis and a second or third trimester with image documentation. COMPARISON: Ultrasound 05/18/2018 FINDINGS: Fetus: Single live intrauterine LIE: Longitudinal Heart rate: 167 bpm Presentation: Breech Placenta: Anterior placental. No evidence of previa BILL: 11.0 cm BIOMETRICS EFW: ESTIMATED WEIGHT IN GRAMS: 125.5 grams BPD: 3.2 cm 15 weeks / 6 days HC: 11.5 cm 15 weeks / 4 days AC: 9.1 cm 15 weeks / 2 days FL: 1.87 cm 15 weeks / 4 days Cervix: CERVICAL LENGTH: 3.0 cm IMPRESSION: Single live intrauterine with composite ultrasound estimated gestational age of 15 weeks 6 days corresponding to estimated due date of 11/30/2018. This demonstrates normal interval growth as compared to prior comparison ultrasound of 05/18/2018.
== END 2018-06-14 23:33 | disposition home or self-care (01) ==
LOC: EC 19:04
DX: O26.892 Other specified pregnancy related conditions, second trimester (principal); R10.84 Generalized abdominal pain; O99.342 Other mental disorders complicating pregnancy, second trimester; F41.9 Anxiety disorder, unspecified; Z3A.15 15 weeks gestation of pregnancy; Z87.891 Personal history of nicotine dependence
CPT/HCPCS: 76805; 81003; 87086; 99284

== ENCOUNTER 2018-08-05 19:58 | Outpatient (CLI) | payer OTHER ==
[2018-08-05 21:00] LABS: Amorphous Sediment,Urine Rare /hpf; Appearance,Urine Clear (Clear); Bacteria,Urine Rare /hpf; Bilirubin,Urine Negative (Negative); Blood,Urine Trace (Negative); Color,Urine Yellow; Glucose,Urine (UA) Negative (Negative); Ketones,Urine Trace (Negative); Leukocyte Esterase,Urine Negative (Negative); Mucus,Urine Occasional /hpf; Nitrite,Urine Negative (Negative); PH, Urine 5.5 (5.0-8.0); Protein,Urine Negative (Negative); RBC,Urine 2 /hpf (0-5); Specific Gravity,Urine 1.014 (1.001-1.035); Squamous Epithelial Cell,Urine 8 /hpf (0-4); Urobilinogen,Urine <2.0 mg/dL (<2.0); WBC,Urine 2 /hpf (0-5)
[2018-08-05 21:26] VITALS: BP 129/73; PULSE 94; RESP 18; TEMP 97.3
--- NOTE | 2018-08-06 09:11 | P.MSEPDOC ---
Presenting Problems - Arrival Data Date of Arrival on Unit: 08/05/18 Time of Arrival on Unit: 18:58 Mode of Transport: Ambulatory - Complaint OB-Reason for Admission/Chief Complaint: Pain Comment: cramping and diarrhea for the last 4 days Medical History - Information : 4 Para: 1 Term: 1 : 0 Abortions: Spontaneous or Elective: 2 Number of Living Children: 1 - Gestational Age Gestational Age by ROSALINO (wks/days): 21 Weeks and 5 Days Review of Systems - Review of Systems Constitutional: No problems Breast: No problems ENT: No problems Cardiovascular: No problems Respiratory: No problems Gastrointestinal: No problems Genitourinary: No problems Musculoskeletal: No problems Neurological: No problems Skin: No problems Vital Signs - Temperature Temperature: 97.3 F Temperature Source: Temporal Artery Scan - Pulse Right Brachial Pulse Rate: 94 Pulse Assessment Method: Automatic Cuff - Respirations Respiratory Rate: 18 Oxygen Delivery Method: Room Air - Blood Pressure Right Arm Blood Pressure: 129/73 Blood Pressure Mean: 91 Blood Pressure Source: Automatic Cuff Medical Screen Scoring (Pre) - Cervical Exam Dilation: 0 cm = 0 Effacement: Exam Deferred Membranes: Intact - Uterine Contractions Frequency: N/A Duration: N/A Intensity: N/A - Maternal Vital Signs Maternal Temperature: N/A Signs of Preeclampsia: N/A Maternal Respirations: N/A - Pain Assessment Pain Location and Character: Abdomen Pain Scale Used: Numeric (1 - 10) Pain Intensity: 3 Pain Management Goal: 3 Pain Description: *Acute, Cramping Pain Radiation Location: none Pain Frequency: Intermittent Pain Duration: 4 Pain Duration Units: Days Pain Behavior: Vocalization Pain Aggravating Factors: None - Maternal Trauma Maternal Trauma: N/A - Assessment Baseline FHR: 138 Heart Rate - NICHD Category: Category I (Normal) = 0 Position: N/A Station: N/A - Total Score Total Score (Pre): 0 - Level of Risk Level of Risk: Low (0-5) Physician Notification (Pre) - Physician Notified Physician Notified Date: 08/05/18 Physician Notified Time: 20:47 Physician/Practitioner Notifed:: Dr. Jensen Spoke With: New Order Received: Yes - Notification Comment Comment: send UA and check cervix, if ua wnl and cervix closed thick and high, may discharge pt home, Disposition - Disposition OB Disposition: Triage, Discharge to home, Written follow up instructions reviewed Discharge Date: 08/05/18 Discharge Time: 21:15 I agree with the RN Medical Screening Exam: Yes Risk & Benefit of care provided described in d/c instruction: Yes Diagnosis: PAIN, UNSPECIFIED
== END 2018-08-05 21:15 | disposition home or self-care (01) ==
LOC: FBPOP 19:58
PROVIDERS: ATTEND Obstetrics & Gynecology
DX: O99.89 Other specified diseases and conditions complicating pregnancy, childbirth and the puerperium (principal); R52 Pain, unspecified; Z3A.21 21 weeks gestation of pregnancy
CPT/HCPCS: 81001; G0463; 99213

== ENCOUNTER → 2018-08-31 | Outpatient (CLI) | payer OTHER ==
[2018-08-31 11:02] LABS: HCT 38.3 % (34.0-46.0); MCHC 31.3 g/dL (31.0-37.0); MCV 83.1 fL (80.0-100.0); Mean Platelet Volume 6.5; Platelet Count 322 k/uL (150-450); RBC 4.61 m/uL (3.80-5.40); RDW 14.4 % (11.5-15.5); WBC 11.3 k/uL (3.8-10.6)
== END | disposition home or self-care (01) ==
LOC: LABWHC1 09:13
PROVIDERS: ATTEND Obstetrics & Gynecology
DX: Z34.82 Encounter for supervision of other normal pregnancy, second trimester (principal)
CPT/HCPCS: 36415; 82950; 85027

== ENCOUNTER 2018-12-04 05:57 | Inpatient (IN) | payer OTHER ==
[2018-12-04] MEDS ORDERED: CARBOPROST TROMETHAMINE 250 MCG/ML 1 ML AMP IM PRN (06:07)
[2018-12-04] MEDS ORDERED: TERBUTALINE 1 MG/ML VIAL SQ PRN (06:07)
[2018-12-04] MEDS ORDERED: OXYTOCIN 30 UNITS/500 ML NS 30 UNIT in SALINE 1 500ML.BAG IV SCH (06:07)
[2018-12-04] MEDS ORDERED: METHYLERGONOVINE 0.2 MG/ML 1 ML AMP IM PRN (06:07)
[2018-12-04] MEDS ORDERED: OXYTOCIN 10 UNIT/ML 1 ML VIAL IM PRN (06:07)
[2018-12-04] MEDS ORDERED: LIDOCAINE 0.5% (PF) 5 MG/ML (50 ML SDV) SQ PRN (06:07)
[2018-12-04] MEDS: LACTATED RINGERS 1,000 ML IV SCH ×3 (06:10→11:35)
[2018-12-04 06:13] VITALS: BMI 38.0
[2018-12-04 06:49] LABS: Basophils % (A) 0 %; Eosinophils # (A) 0.1 k/uL (0-0.7); Eosinophils % (A) 1 %; HCT 37.3 % (34.0-46.0); HGB 12.1 gm/dL (11.4-16.0); Lymphocytes # (A) 2.8 k/uL (1.0-4.8); Lymphocytes % (A) 20 %; MCH 26.3 pg (25.0-35.0); MCHC 32.5 g/dL (31.0-37.0); Mean Platelet Volume 7.4; Monocytes # (A) 0.8 k/uL (0-1.0); Monocytes % (A) 6 %; Neutrophils # (A) 10.1 k/uL (1.3-7.7); Neutrophils % (A) 72 %; Platelet Count 319 k/uL (150-450); RBC 4.61 m/uL (3.80-5.40); RDW 14.5 % (11.5-15.5)
[2018-12-04] MEDS ORDERED: ROPIVACAINE 5MG/ML 20ML VIAL ONE (10:10)
[2018-12-04] MEDS ORDERED: fentaNYL (PF) 50 MCG/ML 5 ML AMP ONE (10:10)
[2018-12-04] MEDS ORDERED: SODIUM CHLORIDE 0.9% 100 ML BAG ONE (10:10)
[2018-12-04] MEDS ORDERED: ROPIVACAINE 100 MG, fentaNYL (PF) 200 MCG in SODIUM CHLORIDE 0.9% 76 ML EPIDURAL ONE (11:21)
[2018-12-04] MEDS ORDERED: diphenhydrAMINE 50 MG CAP PO PRN (13:10)
[2018-12-04] MEDS ORDERED: SIMETHICONE 80 MG CHEWABLE PO PRN (13:10)
[2018-12-04] MEDS ORDERED: ACETAMINOPHEN TAB 325 MG TAB PO PRN (13:10)
[2018-12-04] MEDS ORDERED: WITCH HAZEL 1 EACH MED..PAD TOPICAL PRN (13:10)
[2018-12-04] MEDS ORDERED: HYDROCORTISONE 2.5% RECTAL CREAM 30 GM TUBE RECTAL PRN (13:10)
[2018-12-04] MEDS ORDERED: ZOLPIDEM 5 MG TAB PO PRN (13:10)
[2018-12-04] MEDS ORDERED: diphenhydrAMINE 50 MG/ML 1 ML VIAL IVP PRN ×2 (13:10)
[2018-12-04] MEDS ORDERED: diphenhydrAMINE 25 MG CAP PO PRN (13:10)
[2018-12-04] MEDS ORDERED: LANOLIN CREAM 5 GM TUBE TOPICAL PRN (13:10)
[2018-12-04] MEDS ORDERED: BENZOCAINE/MENTHOL SPRAY 1 GM/SPRAY AEROSOL TOPICAL PRN (13:10)
--- NOTE | 2018-12-04 13:14 | P.HPOB ---
History of Present Illness H&P Date: 12/04/18 Chief Complaint: Induction of Labor 23-year-old presents at 39 weeks for induction of labor. Her cervix is 1- 2 cm dilated, 70% effaced, -2 station. She is delaney irregularly. heart tones 130 with moderate variability and reactive. Review of Systems All systems: negative Constitutional: Denies chills, Denies fever Eyes: denies blurred vision, denies pain Ears, nose, mouth and throat: Denies headache, Denies sore throat Cardiovascular: Denies chest pain, Denies shortness of breath Respiratory: Denies cough Gastrointestinal: Denies abdominal pain, Denies diarrhea, Denies nausea, Denies vomiting Genitourinary: Denies dysuria, Denies hematuria Musculoskeletal: Denies myalgias Integumentary: Denies pruritus, Denies rash Neurological: Denies numbness, Denies weakness Psychiatric: Denies anxiety, Denies depression Endocrine: Denies fatigue, Denies weight change Past Medical History Past Medical History: No Reported History Additional Past Medical History / Comment(s): OB history: previous spontaneous 2, history of 1 vaginal delivery. This is her fourth . She's had care with me since the first trimester. Blood type is O+, antibody is negative, rubella immune, this B-, GBS negative. History of Any Multi-Drug Resistant Organisms: None Reported Past Surgical History: Ear Surgery, Orthopedic Surgery Additional Past Surgical History / Comment(s): Birthmark removed from back. BMT. ORIF left foot. D&C. Past Anesthesia/Blood Transfusion Reactions: No Reported Reaction Past Psychological History: No Psychological Hx Reported Smoking Status: Former smoker Past Alcohol Use History: None Reported Additional Past Alcohol Use History / Comment(s): Quit smoking 2010, smoked for 3 yrs, < 1 PPD Past Drug Use History: None Reported Additional Drug Use History / Comment(s): OCC USE. - Past Family History Mother History Unknown: Yes Family Medical History: Deep Vein Thrombosis (DVT) Medications and Allergies Home Medications Medication Instructions Recorded Confirmed Type Pnv No.95/Ferrous Fum/Folic AC 1 tab PO DAILY 06/14/18 12/04/18 History [ Multivitamin Tablet] Allergies Allergy/AdvReac Type Severity Reaction Status Date / Time No Known Allergies Allergy Verified 12/04/18 06:06 Exam Osteopathic Statement: *. No significant issues noted on an osteopathic structural exam other than those noted in the History and Physical/Consult. Vital Signs Temp Pulse Resp BP Pulse Ox 12/04/18 06:10 96.6 F L 96 16 110/74 98 Intake and Output 12/03/18 12/04/18 12/04/18 22:59 06:59 14:59 Other: Weight 100.698 kg Heart: Regular rate and rhythm Lungs: Clear to auscultation bilaterally Abdomen: Soft, nontender Extremities: Negative Homans sign Results Result Diagrams: 12/04/18 06:37 Abnormal Lab Results - Last 24 Hours (Table) 12/04/18 Range/Units 06:37 WBC 14.0 H (3.8-10.6) k/uL Neutrophils # 10.1 H (1.3-7.7) k/uL Assessment and Plan (1) Normal labor Current Visit: Yes Status: Acute Code(s): O80 - ENCOUNTER FOR FULL-TERM UNCOMPLICATED DELIVERY; Z37.9 - OUTCOME OF DELIVERY, UNSPECIFIED SNOMED Code(s): 81296213 Plan: 1. Induction of labor with amniotomy and Pitocin 2. Anticipate normal vaginal delivery
[2018-12-04] MEDS ORDERED: OXYTOCIN 20 UNITS/1000 ML NS 1,000 ML IV SCH (13:15)
--- NOTE | 2018-12-04 13:15 | P.PROBDLV ---
Vaginal Delivery Note - . Vaginal Delivery Note: 23-year-old presents at 39 weeks for induction of labor. Her cervix is 1- 2 cm dilated, 70% effaced, -2 station. She is delaney irregularly. heart tones 130 with moderate variability and reactive. Pitocin was started. Amniotomy was performed at 7:55 AM and clear fluid noted. When she was about 3 cm she did get an epidural and was comfortable. Her cervix was completely dilated at 12:24 PM but she was very comfortable so her labor down for about 20 minutes. She pushed, and delivered a viable male over intact perineum under epidural anesthesia at 1301. Head delivered OA, anterior shoulder delivered delivered with gentle downward guidance followed by posterior shoulder and rest of body. Nose and mouth bulb suctioned, cord clamped and cut, placed mother's abdomen. Apgars 9, 10, weight 8 pounds 9.2 ounces. Placenta delivered spontaneously, intact with three-vessel cord at 1305. Vagina, cervix, and perineum were inspected. No lacerations noted. Estimated blood loss 150 mL. Mother and baby in stable condition.
[2018-12-04 13:45] VITALS: RESP 16
[2018-12-04] MEDS: IBUPROFEN 600 MG TAB PO PRN ×2 (14:10→22:51)
[2018-12-04] MEDS: SENNOSIDES-DOCUSATE SODIUM 1 EACH TAB PO SCH (19:55)
--- NOTE | 2018-12-05 07:10 | P.DS ---
Providers Date of admission: 12/04/18 05:57 Expected date of discharge: 12/05/18 Attending physician: Jennifer Peters Primary care physician: Stated None - Discharge Diagnosis(es) (1) Normal labor Current Visit: Yes Status: Resolved (2) Normal vaginal delivery Current Visit: No Status: Acute Hospital Course: Pt presented for induction of labor. She underwent a normal vaginal delivery. HEr pp course was uncomplicated. She is ambulating, voiding, navin reg diet and passing flatus. She denies N/V, F/C, CP, SOB or calf pain. She will be discharged home PPD #1 in stable condition to follow up with me in 6 weeks. Plan - Discharge Summary New Discharge Prescriptions: New Ibuprofen [Motrin] 600 mg PO Q6HR PRN #30 tab PRN Reason: Mild Pain Or Fever >= 100.5 No Action Pnv No.95/Ferrous Fum/Folic AC [ Multivitamin Tablet] 1 tab PO DAILY Discharge Medication List Pnv No.95/Ferrous Fum/Folic AC [ Multivitamin Tablet] 1 tab PO DAILY 06/14/18 [History] Ibuprofen [Motrin] 600 mg PO Q6HR PRN #30 tab 12/05/18 [Rx] Follow up Appointment(s)/Referral(s): Jennifer Peters DO [Doctor of Osteopathic Medicine] - 6 Weeks Discharge Disposition: HOME SELF-CARE
[2018-12-05] MEDS: SENNOSIDES-DOCUSATE SODIUM 1 EACH TAB PO SCH ×2 (08:28→09:10)
[2018-12-05 09:10] VITALS: BP 110/75; PULSE 78; TEMP 97.5
[2018-12-05] MEDS: IBUPROFEN 600 MG TAB PO PRN (15:08)
== END 2018-12-05 16:00 | disposition home or self-care (01) | DRG 807 ==
LOC: 4FBP 05:57
PROVIDERS: ADMIT Obstetrics & Gynecology; ATTEND Obstetrics & Gynecology
PROC: 10E0XZZ Delivery of Products of Conception, External Approach (ICD-10-PCS; principal; 2018-12-04)
PROC: 00HU33Z Insertion of Infusion Device into Spinal Canal, Percutaneous Approach (ICD-10-PCS; 2018-12-04)
PROC: 3E0R3BZ Introduction of Anesthetic Agent into Spinal Canal, Percutaneous Approach (ICD-10-PCS; 2018-12-04)
PROC: 10907ZC Drainage of Amniotic Fluid, Therapeutic from Products of Conception, Via Natural or Artificial Opening (ICD-10-PCS; 2018-12-04)
PROC: 3E033VJ Introduction of Other Hormone into Peripheral Vein, Percutaneous Approach (ICD-10-PCS; 2018-12-04)
DX: O99.62 Diseases of the digestive system complicating childbirth (principal); Z37.0 Single live birth; K21.9 Gastro-esophageal reflux disease without esophagitis; Z3A.39 39 weeks gestation of pregnancy; Z87.891 Personal history of nicotine dependence; Z82.49 Family history of ischemic heart disease and other diseases of the circulatory system
CPT/HCPCS: 85025; 86850; 86900; 86901

== ENCOUNTER 2021-05-27 15:28 | Emergency (ER) | payer OTHER ==
[2021-05-27 16:37] VITALS: TEMP 98.1
[2021-05-27] MEDS ORDERED: SODIUM CHLORIDE 0.9% 1,000 ML IV STA (17:59)
[2021-05-27] MEDS ORDERED: DICYCLOMINE 10 MG/ML 2 ML AMP IM STA (18:00)
[2021-05-27 18:23] LABS: Basophils # (A) 0.1 k/uL (0-0.2); Basophils % (A) 0 %; Eosinophils # (A) 0.4 k/uL (0-0.7); Eosinophils % (A) 2 %; HCT 44.6 % (34.0-46.0); HGB 14.4 gm/dL (11.4-16.0); Lymphocytes # (A) 3.2 k/uL (1.0-4.8); Lymphocytes % (A) 17 %; MCH 27.2 pg (25.0-35.0); MCHC 32.2 g/dL (31.0-37.0); MCV 84.3 fL (80.0-100.0); Mean Platelet Volume 6.9; Monocytes # (A) 0.8 k/uL (0-1.0); Monocytes % (A) 4 %; Neutrophils % (A) 75 %; Platelet Count 414 k/uL (150-450); RBC 5.29 m/uL (3.80-5.40); RDW 13.9 % (11.5-15.5); WBC 18.7 k/uL (3.8-10.6)
[2021-05-27 18:29] LABS: ALT 12 U/L (4-34); AST 21 U/L (14-36); African American GFR (CKD) >90 (>60 ml/min/1.73 sqM); Albumin 4.4 g/dL (3.5-5.0); Alkaline Phosphatase 105 U/L (38-126); Anion Gap 13 mmol/L; Blood Urea Nitrogen 9 mg/dL (7-17); Carbon Dioxide 21 mmol/L (22-30); Chloride 104 mmol/L (98-107); Glucose 80 mg/dL (74-99); Lipase 38 U/L (23-300); Non-African American GFR(CKD) >90 (>60 ml/min/1.73 sqM); Potassium 4.1 mmol/L (3.5-5.1); Sodium 138 mmol/L (137-145); Total Bilirubin 0.7 mg/dL (0.2-1.3); Total Protein 7.9 g/dL (6.3-8.2)
--- NOTE | 2021-05-27 18:30 | ED ---
Abdominal Pain HPI - General Chief Complaint: Abdominal Pain Stated Complaint: Abd pain,diarrhea Time Seen by Provider: 05/27/21 17:29 Source: patient Mode of arrival: ambulatory Limitations: no limitations - History of Present Illness Initial Comments: 26-year-old female patient presents to the emergency department today for evaluation of generalized abdominal cramping and diarrhea. States symptoms started late Monday evening have been persistent since. States with any oral intake she immediately gets cramping and needs to have a bowel movement. Denies any black or bloody stools. Denies any nausea or vomiting. Denies fever or chills. She denies any recent sick contacts or travel. Denies antibiotic use within the last 2 months. Denies alcohol or drug use. Has had D&C in the past no other abdominal surgeries. Patient denies any recent rash, cough, shortness of breath, chest pain, back pain, numbness, tingling, dizziness, weakness, hem aturia, dysuria, urinary urgency, urinary frequency, headache, visual changes, or any other complaints. - Related Data Previous Rx's Medication Instructions Recorded Pnv,Calcium 72/Iron/Folic Acid 1 each PO DAILY #30 tablet 05/27/21 [ Plus Tablet] Allergies Allergy/AdvReac Type Severity Reaction Status Date / Time No Known Allergies Allergy Verified 05/27/21 18:15 Review of Systems ROS Statement: Those systems with pertinent positive or pertinent negative responses have been documented in the HPI. ROS Other: All systems not noted in ROS Statement are negative. Past Medical History Past Medical History: No Reported History Additional Past Medical History / Comment(s): OB history: previous spontaneous 2, history of 1 vaginal delivery. This is her fourth . She's had care with me since the first trimester. Blood type is O+, antibody is negative, rubella immune, this B-, GBS negative. History of Any Multi-Drug Resistant Organisms: None Reported Past Surgical History: Ear Surgery, Orthopedic Surgery Additional Past Surgical History / Comment(s): Birthmark removed from back. BMT. ORIF left foot. D&C. Past Anesthesia/Blood Transfusion Reactions: No Reported Reaction Past Psychological History: No Psychological Hx Reported Smoking Status: Never smoker Past Alcohol Use History: None Reported Past Drug Use History: Marijuana - Past Family History Mother History Unknown: Yes Family Medical History: Deep Vein Thrombosis (DVT) General Exam Limitations: no limitations General appearance: alert, in no apparent distress, other (This is a well- developed, well-nourished adult female in no acute distress.) ENT exam: Present: normal exam, normal oropharynx, mucous membranes moist Respiratory exam: Present: normal lung sounds bilaterally. Absent: respiratory distress, wheezes, rales, rhonchi, stridor Cardiovascular Exam: Present: regular rate, normal rhythm, normal heart sounds. Absent: systolic murmur, diastolic murmur, rubs, gallop, clicks GI/Abdominal exam: Present: soft, tenderness (Left lower quadrant), normal bowel sounds. Absent: distended, guarding, rebound, rigid Neurological exam: Present: alert, oriented X3, CN II-XII intact Psychiatric exam: Present: normal affect, normal mood Skin exam: Present: warm, dry, intact, normal color. Absent: rash Course Vital Signs 05/27/21 05/27/21 16:35 19:56 Temperature 98.1 F Pulse Rate 98 86 Respiratory 16 18 Rate Blood Pressure 156/85 132/73 O2 Sat by Pulse 99 100 Oximetry Medical Decision Making - Medical Decision Making 26 year-old female patient presents to the emergency department for evaluation of abdominal cramping and diarrhea for the last 4 days. Physical exam did reveal mild left lower quadrant tenderness. Labs reviewed showed elevated WBC count at 18.7, left shift neutrophils 14. Urine HCG was detected. She is A3. Serum HCG 72. US of the pelvis did not show any intrauterine at this time. No evidence for ectopic but unable to completely rule out. Findings on ultrasound is consistent with HCG level and gestational age. Patient was informed of all results. She will be given a lab slip to have repeat HCG in two days. She has seen Dr. Peters in the past and plans on calling her office in the morning. I did instruct her to follow up with her primary care physician regarding the elevated white blood cell count. I did inform her that all of her white blood cell counts done at this hospital have been elevated and to inform her doctor of this. She is instructed to increase fluids and drink sports drinks to replace electorally to the diarrhea. Return parameters were discussed in detail. She verbalizes understanding and agrees with this plan. My attending is Dr. Rodriguez. - Lab Data Result diagrams: 05/27/21 18:05 05/27/21 18:05 Lab Results 05/27/21 05/27/21 05/27/21 Range/Units 18:05 18:05 18:05 WBC 18.7 H (3.8-10.6) k/uL RBC 5.29 (3.80-5.40) m/uL Hgb 14.4 (11.4-16.0) gm/dL Hct 44.6 (34.0-46.0) % MCV 84.3 (80.0-100.0) fL MCH 27.2 (25.0-35.0) pg MCHC 32.2 (31.0-37.0) g/dL RDW 13.9 (11.5-15.5) % Plt Count 414 (150-450) k/uL MPV 6.9 Neutrophils % 75 % Lymphocytes % 17 % Monocytes % 4 % Eosinophils % 2 % Basophils % 0 % Neutrophils # 14.0 H (1.3-7.7) k/uL Lymphocytes # 3.2 (1.0-4.8) k/uL Monocytes # 0.8 (0-1.0) k/uL Eosinophils # 0.4 (0-0.7) k/uL Basophils # 0.1 (0-0.2) k/uL Sodium 138 (137-145) mmol/L Potassium 4.1 (3.5-5.1) mmol/L Chloride 104 (98-107) mmol/L Carbon Dioxide 21 L (22-30) mmol/L Anion Gap 13 mmol/L BUN 9 (7-17) mg/dL Creatinine 0.71 (0.52-1.04) mg/dL Est GFR (CKD-EPI)AfAm >90 (>60 ml/min/1.73 sqM) Est GFR (CKD-EPI)NonAf >90 (>60 ml/min/1.73 sqM) Glucose 80 (74-99) mg/dL Plasma Lactic Acid [place] 0.9 (0.7-2.0) mmol/L Calcium 9.3 (8.4-10.2) mg/dL Total Bilirubin 0.7 (0.2-1.3) mg/dL AST 21 (14-36) U/L ALT 12 (4-34) U/L Alkaline Phosphatase 105 (38-126) U/L Total Protein 7.9 (6.3-8.2) g/dL Albumin 4.4 (3.5-5.0) g/dL Lipase 38 (23-300) U/L HCG, Quant mIU/mL Urine Color Urine Appearance (Clear) Urine pH (5.0-8.0) Ur Specific [place] (1.001-1.035) Urine Protein (Negative) Urine Glucose (UA) (Negative) Urine Ketones (Negative) Urine Blood (Negative) Urine Nitrite (Negative) Urine Bilirubin (Negative) Urine Urobilinogen (<2.0) mg/dL Ur Leukocyte Esterase (Negative) Urine RBC (0-5) /hpf Urine WBC (0-5) /hpf Ur Squamous Epith Cells (0-4) /hpf Urine Mucus (None) /hpf Urine HCG, Qual (Not Detectd) 05/27/21 05/27/21 05/27/21 Range/Units 19:38 Unknown Unknown WBC (3.8-10.6) k/uL RBC (3.80-5.40) m/uL Hgb (11.4-16.0) gm/dL Hct (34.0-46.0) % MCV (80.0-100.0) fL MCH (25.0-35.0) pg MCHC (31.0-37.0) g/dL RDW (11.5-15.5) % Plt Count (150-450) k/uL MPV Neutrophils % % Lymphocytes % % Monocytes % % Eosinophils % % Basophils % % Neutrophils # (1.3-7.7) k/uL Lymphocytes # (1.0-4.8) k/uL Monocytes # (0-1.0) k/uL Eosinophils # (0-0.7) k/uL Basophils # (0-0.2) k/uL Sodium (137-145) mmol/L Potassium (3.5-5.1) mmol/L Chloride (98-107) mmol/L Carbon Dioxide (22-30) mmol/L Anion Gap mmol/L BUN (7-17) mg/dL Creatinine (0.52-1.04) mg/dL Est GFR (CKD-EPI)AfAm (>60 ml/min/1.73 sqM) Est GFR (CKD-EPI)NonAf (>60 ml/min/1.73 sqM) Glucose (74-99) mg/dL Plasma Lactic Acid [place] (0.7-2.0) mmol/L Calcium (8.4-10.2) mg/dL Total Bilirubin (0.2-1.3) mg/dL AST (14-36) U/L ALT (4-34) U/L Alkaline Phosphatase (38-126) U/L Total Protein (6.3-8.2) g/dL Albumin (3.5-5.0) g/dL Lipase (23-300) U/L HCG, Quant 72.9 mIU/mL Urine Color Yellow Urine Appearance Cloudy H (Clear) Urine pH 5.5 (5.0-8.0) Ur Specific [place] 1.016 (1.001-1.035) Urine Protein Negative (Negative) Urine Glucose (UA) Negative (Negative) Urine Ketones 2+ H (Negative) Urine Blood Small H (Negative) Urine Nitrite Negative (Negative) Urine Bilirubin Negative (Negative) Urine Urobilinogen <2.0 (<2.0) mg/dL Ur Leukocyte Esterase Small H (Negative) Urine RBC 3 (0-5) /hpf Urine WBC 3 (0-5) /hpf Ur Squamous Epith Cells 5 H (0-4) /hpf Urine Mucus Many H (None) /hpf Urine HCG, Qual Detected (Not Detectd) - Radiology Data Radiology results: report reviewed Obstetrical ultrasound was obtained. Report was reviewed in its entirety. Impression by Dr. Carranza shows no intrauterine identified. No adnexal abnormalities seen. Ectopic not entirely excluded although no extrauterine identified. Disposition Clinical Impression: Leukocytosis, Diarrhea, Disposition: HOME SELF-CARE Condition: Good Instructions (If sedation given, give patient instructions): (ED), Acute Diarrhea (ED), Leukocytosis (ED) Additional Instructions: Increase fluids. Follow up with primary care physician to recheck labs related to elevated white blood cell count. Follow up with OBGYN. Return for any new, worsening, or concerning symptoms. Prescriptions: Pnv,Calcium 72/Iron/Folic Acid [ Plus Tablet] 1 each PO DAILY #30 tablet Is patient prescribed a controlled substance at d/c from ED?: No Referrals: None,Stated [Primary Care Provider] - 1-2 days Time of Disposition: 20:54
[2021-05-27 18:38] LABS: Appearance,Urine Cloudy (Clear); Bilirubin,Urine Negative (Negative); Blood,Urine Small (Negative); Color,Urine Yellow; Glucose,Urine (UA) Negative (Negative); Ketones,Urine 2+ (Negative); Leukocyte Esterase,Urine Small (Negative); Mucus,Urine Many /hpf; Nitrite,Urine Negative (Negative); PH, Urine 5.5 (5.0-8.0); Protein,Urine Negative (Negative); RBC,Urine 3 /hpf (0-5); Specific Gravity,Urine 1.016 (1.001-1.035); Squamous Epithelial Cell,Urine 5 /hpf (0-4); Urobilinogen,Urine <2.0 mg/dL (<2.0); WBC,Urine 3 /hpf (0-5)
[2021-05-27 18:40] LABS: Calcium 9.3 mg/dL (8.4-10.2)
[2021-05-27 19:57] VITALS: BP 132/73; PULSE 86; RESP 18
--- NOTE | 2021-05-27 20:35 | US ---
EXAMINATION TYPE: Transabdominal DATE OF EXAM: 05/27/2021 8:15 PM COMPARISON: NONE CLINICAL HISTORY: abd pain; Positive Uhcg; LMP 04/23/21. Patient states having abdominal pain for 4 day s. Patient also states she is 4 weeks . Hx of miscarriages; hx of D&C EXAM PERFORMED: Transvaginal (TV) and Transabdominal (TA) EXAM MEASUREMENTS: GESTATIONAL AGE / DATING Physician Established: Not yet established Dates by LMP: (4 weeks/6 days) EDC: 01/28/22 Dates by First Scan: No previous this is first scan Dates by Current Scan for: No IUP seen at this time MATERNAL ANATOMY Uterus: 7.6 x 4.1 x 5.5 cm Right Ovary: 2.6 x 1.7 x 1.7 cm Left Ovary: 3.1 x 2.2 x 2.3 cm; anechoic focus seen 1.2 x 1.0 x 1.4 cm. Post CDS / Adnexa: Minimal amount of fluid seen within the posterior cul-de-sac. Presence of free fluid: There appears to be a small amount of fluid adjacent to the left ovary. Presence of corpus luteal cyst: Not seen GESTATION / SURVEY No IUP seen at this time. Date of LMP: 04/23/21 Beta HcG (if available): 72.9 There appears to be some calcifications within the cervix as well as nabothian cysts. IMPRESSION: 1. No intrauterine identified. 2. No adnexal abnormality seen. Ectopic not entirely excluded although no extrauterine preg cydney identified.
== END 2021-05-27 21:31 | disposition home or self-care (01) ==
LOC: EC 15:28
DX: R19.7 Diarrhea, unspecified (principal); D72.829 Elevated white blood cell count, unspecified; F12.90 Cannabis use, unspecified, uncomplicated
CPT/HCPCS: 36415; 76801; 76817; 80053; 81001; 81025; 83605; 83690; 84702; 85025; 99284

== ENCOUNTER 2021-12-31 18:42 | Outpatient (CLI) | payer OTHER ==
[2021-12-31 19:52] VITALS: BP 131/78; PULSE 113; RESP 18; TEMP 96.7
--- NOTE | 2022-01-01 12:10 | P.MSEPDOC ---
Presenting Problems - Arrival Data Date of Arrival on Unit: 12/31/21 Time of Arrival on Unit: 18:42 Mode of Transport: Ambulatory - Complaint OB-Reason for Admission/Chief Complaint: Rule Out SROM Medical History - Information : 6 Para: 2 Term: 0 : 2 Abortions: Spontaneous or Elective: 3 Number of Living Children: 2 - Gestational Age Gestational Age by ROSALINO (wks/days): 36 Weeks and 0 Days - History Comment: n/a Review of Systems - Review of Systems Constitutional: No problems Breast: No problems ENT: No problems Cardiovascular: No problems Respiratory: No problems Gastrointestinal: No problems Genitourinary: No problems Musculoskeletal: No problems Neurological: No problems Skin: No problems Vital Signs - Temperature Temperature: 96.7 F Temperature Source: Temporal Artery Scan - Pulse Pulse Oximetery Pulse Rate: 113 Pulse Assessment Method: Pulse Oximetry - Respirations Respiratory Rate: 18 Oxygen Delivery Method: Room Air O2 Sat by Pulse Oximetry: 98 - Blood Pressure Right Arm Blood Pressure: 131/78 Blood Pressure Mean: 95 Blood Pressure Source: Automatic Cuff Medical Screen Scoring - Cervical Exam Dilation (cm): 3 Station: -3 Membranes: Intact - Uterine Contractions Frequency From (mins): 6 Frequency To (mins): 10 Duration From (seconds): 70 Duration To (seconds): 80 Intensity: Mild Resting: Soft to palpation - Assessment - Baby A Baseline FHR: 150 Heart Rate - NICHD Category: Category I (Normal) NST: Reactive Physician Notification - Physician Notified Physician Notified Date: 12/31/21 Physician Notified Time: 19:25 Physician: Dr. Jensen New Order Received: Yes - Notification Comment Comment: Paged Dr. Jensen she called right back. Reported patient stated she thought she. had been leaking since Monday. Reported , ROSALINO 01/28/2022, GA 36 0/7. Amnisure. negative, NST reactive, Cervical Exam 2, thick, -3. No other complaints. Orders to. reassure and encourage to come back if she feels a gush. Discharge home. Maternal Triage Index - Maternal Triage Index Presenting for scheduled procedure w/no complaint: No - Stat/Priority 1 Stat Priority 1: No - Urgent/Priority 2 Urgent Priority 2: No - Prompt/Priority 3 Prompt Priority 3: Yes Criteria Met for Priority 3: c/o [id number] weeks - Non-Urgent/Priority 4 Non-Urgent Priority 4: No - Scheduled/Requesting Priority 5 Scheduled/Requesting Priority 5: No Disposition - Disposition OB Disposition: Discharge to home Discharge Date: 12/31/21 Discharge Time: 19:35 I agree with the RN Medical Screening Exam: Yes Case reviewed; plan agreed upon as documented in EMR&OBIX.: Yes Diagnosis: FALSE LABOR BEFORE 37 COMPLETED WEEKS OF GEST, THIRD TRI
== END 2021-12-31 19:35 | disposition home or self-care (01) ==
LOC: FBPOP 18:42
PROVIDERS: ATTEND Obstetrics & Gynecology
DX: O47.1 False labor at or after 37 completed weeks of gestation (principal); Z3A.36 36 weeks gestation of pregnancy; Z87.891 Personal history of nicotine dependence
CPT/HCPCS: 99213

== ENCOUNTER 2022-02-03 06:09 | Inpatient (IN) | payer OTHER ==
[2022-02-03] MEDS ORDERED: OXYTOCIN 10 UNIT/ML 1 ML VIAL IM PRN (06:28)
[2022-02-03] MEDS ORDERED: CARBOPROST TROMETHAMINE 250 MCG/ML 1 ML AMP IM PRN (06:28)
[2022-02-03] MEDS ORDERED: METHYLERGONOVINE 0.2 MG/ML 1 ML AMP IM PRN (06:28)
[2022-02-03] MEDS ORDERED: TERBUTALINE 1 MG/ML VIAL SQ PRN (06:28)
[2022-02-03] MEDS ORDERED: LIDOCAINE 0.5% (PF) 5 MG/ML (50 ML SDV) SQ PRN (06:28)
[2022-02-03] MEDS ORDERED: OXYTOCIN 30 UNITS/500 ML NS 30 UNIT in SALINE 1 500ML.BAG IV SCH (06:30)
[2022-02-03] MEDS: LACTATED RINGERS 1,000 ML IV SCH ×3 (06:41→23:47)
[2022-02-03 06:47] LABS: Basophils % (A) 0 %; Eosinophils # (A) 0.2 k/uL (0-0.7); Eosinophils % (A) 1 %; HCT 37.5 % (34.0-46.0); HGB 12.1 gm/dL (11.4-16.0); Hypochromasia Slight; Lymphocytes % (A) 21 %; MCH 25.5 pg (25.0-35.0); MCHC 32.1 g/dL (31.0-37.0); MCV 79.4 fL (80.0-100.0); Mean Platelet Volume 8.3; Monocytes % (A) 7 %; Neutrophils # (A) 10.1 k/uL (1.3-7.7); Neutrophils % (A) 70 %; Platelet Count 357 k/uL (150-450); RBC 4.72 m/uL (3.80-5.40); RDW 14.1 % (11.5-15.5); WBC 14.4 k/uL (3.8-10.6)
[2022-02-03] MEDS ORDERED: fentaNYL (PF) 50 MCG/ML 5 ML AMP ONE (08:30)
[2022-02-03] MEDS ORDERED: ROPIVACAINE 5 MG/ML 20 ML AMPULE ONE (08:30)
[2022-02-03] MEDS ORDERED: SODIUM CHLORIDE 0.9% 100 ML BAG ONE (08:30)
[2022-02-03] MEDS ORDERED: BENZOCAINE/MENTHOL SPRAY 1 GM/SPRAY AEROSOL TOPICAL PRN (10:37)
[2022-02-03] MEDS ORDERED: ACETAMINOPHEN TAB 325 MG TAB PO PRN (10:37)
[2022-02-03] MEDS ORDERED: diphenhydrAMINE 25 MG CAP PO PRN (10:37)
[2022-02-03] MEDS ORDERED: diphenhydrAMINE 50 MG CAP PO PRN (10:37)
[2022-02-03] MEDS ORDERED: SIMETHICONE 80 MG CHEWABLE PO PRN (10:37)
[2022-02-03] MEDS ORDERED: ZOLPIDEM 5 MG TAB PO PRN (10:37)
[2022-02-03] MEDS ORDERED: HYDROcodone/APAP 5-325MG 1 EACH TAB PO PRN (10:37)
[2022-02-03] MEDS: IBUPROFEN 600 MG TAB PO PRN (17:57)
[2022-02-03] MEDS: SENNOSIDES-DOCUSATE SODIUM 1 EACH TAB PO SCH (21:24)
--- NOTE | 2022-02-04 00:17 | P.HPOB ---
History of Present Illness H&P Date: 02/03/22 Chief Complaint: Induction of labor 26-year-old presents at 40 weeks and 5 days for induction of labor. Her cervix was 3 cm dilated, 70% effaced, and -2 station. She is delaney irregularly. heart tones 135 with moderate variability and reactive. Review of Systems All systems: negative Constitutional: Denies chills, Denies fever Eyes: denies blurred vision, denies pain Ears, nose, mouth and throat: Denies headache, Denies sore throat Cardiovascular: Denies chest pain, Denies shortness of breath Respiratory: Denies cough Gastrointestinal: Denies abdominal pain, Denies diarrhea, Denies nausea, Denies vomiting Genitourinary: Denies dysuria, Denies hematuria Musculoskeletal: Denies myalgias Integumentary: Denies pruritus, Denies rash Neurological: Denies numbness, Denies weakness Psychiatric: Denies anxiety, Denies depression Endocrine: Denies fatigue, Denies weight change Past Medical History Past Medical History: No Reported History Additional Past Medical History / Comment(s): OB history: previous spontaneous 3, history of 2 vaginal delivery. This is her sixth . She's had care with me since the first trimester. Blood type is O+, antibody is negative, rubella immune, this B-, GBS negative. History of Any Multi-Drug Resistant Organisms: None Reported Past Surgical History: Ear Surgery, Orthopedic Surgery Additional Past Surgical History / Comment(s): Birthmark removed from back. BMT. ORIF left foot. D&C. Past Anesthesia/Blood Transfusion Reactions: No Reported Reaction Past Psychological History: No Psychological Hx Reported Smoking Status: Never smoker Past Alcohol Use History: None Reported Additional Past Alcohol Use History / Comment(s): Quit smoking 2010, smoked for 3 yrs, < 1 PPD Past Drug Use History: Marijuana Additional Drug Use History / Comment(s): OCC USE. - Past Family History Mother History Unknown: Yes Family Medical History: Deep Vein Thrombosis (DVT) Medications and Allergies Home Medications Medication Instructions Recorded Confirmed Type No Known Home Medications 02/03/22 02/03/22 History Allergies Allergy/AdvReac Type Severity Reaction Status Date / Time No Known Allergies Allergy Verified 12/31/21 18:56 Exam Osteopathic Statement: *. No significant issues noted on an osteopathic structural exam other than those noted in the History and Physical/Consult. Vital Signs Temp Pulse Resp BP Pulse Ox 02/03/22 20:00 98.2 F 105 H 16 106/73 02/03/22 16:00 98.1 F 84 16 123/81 98 02/03/22 12:35 97.3 F L 101 H 16 129/74 02/03/22 12:00 91 16 122/75 02/03/22 11:15 98.9 F 85 16 118/67 02/03/22 11:03 88 16 120/61 02/03/22 10:45 86 16 120/61 02/03/22 10:30 87 16 119/61 02/03/22 10:15 93 16 120/63 02/03/22 07:40 97.4 F L 115 H 16 144/86 02/03/22 06:32 115 H Intake and Output 02/03/22 02/03/22 02/04/22 14:59 22:59 06:59 Output Total 319 Balance -319 Output: Estimated Blood Loss 163 Output, Quantitative 156 Blood Loss Other: # Voids 1 1 2 Weight 102.512 kg Heart: Regular rate and rhythm Lungs: Clear to auscultation bilaterally Abdomen: Soft, nontender Extremities: Negative Homans sign Results Result Diagrams: 02/03/22 06:30 Abnormal Lab Results - Last 24 Hours (Table) 02/03/22 Range/Units 06:30 WBC 14.4 H (3.8-10.6) k/uL MCV 79.4 L (80.0-100.0) fL Neutrophils # 10.1 H (1.3-7.7) k/uL Assessment and Plan (1) Encounter for induction of labor Current Visit: Yes Status: Acute Code(s): Z34.90 - ENCNTR FOR SUPRVSN OF NORMAL , UNSP, UNSP TRIMESTER SNOMED Code(s): 045294503 Plan: 1. Induction of labor with amniotomy Pitocin 2. Anticipate normal vaginal delivery
--- NOTE | 2022-02-04 00:18 | P.PROBDLV ---
Vaginal Delivery Note - . Vaginal Delivery Note: 26-year-old presents at 40 weeks and 5 days for induction of labor. Her cervix was 3 cm dilated, 70% effaced, and -2 station. She is delaney irregularly. heart tones 135 with moderate variability and reactive. Pitocin was started. Amniotomy performed at 6:49 AM and thin meconium fluid was noted. She was quickly uncomfortable and did get an epidural. Her cervix was completely dilated at 10 AM. She pushed, and delivered a viable female infant o michael intact perineum under epidural anesthesia at 10:03 AM. Head delivered OA, nuchal cord 1 easily reduced, anterior shoulder delivered gentle downward guidance followed by posterior shoulder and rest of body. Nose and mouth bulb suctioned, cord clamped and cut, placed mother's abdomen. Apgars 9, 9, weight 9 lbs. 4 oz. Placenta delivered spontaneously, intact with three-vessel cord at 10:08 AM. Vagina, cervix, perineum inspected. No lacerations noted. Estimated blood loss 100 mL. Mother and baby in stable condition.
[2022-02-04 04:40] VITALS: TEMP 98.2
[2022-02-04 07:42] LABS: Basophils # (A) 0.1 k/uL (0-0.2); Basophils % (A) 0 %; Eosinophils # (A) 0.1 k/uL (0-0.7); Eosinophils % (A) 1 %; HCT 34.6 % (34.0-46.0); HGB 11.1 gm/dL (11.4-16.0); Hypochromasia Moderate; Lymphocytes # (A) 2.9 k/uL (1.0-4.8); Lymphocytes % (A) 17 %; MCH 25.8 pg (25.0-35.0); MCV 80.6 fL (80.0-100.0); Mean Platelet Volume 8.1; Monocytes % (A) 6 %; Neutrophils # (A) 12.4 k/uL (1.3-7.7); Neutrophils % (A) 74 %; Platelet Count 303 k/uL (150-450); RBC 4.29 m/uL (3.80-5.40); RDW 14.1 % (11.5-15.5); WBC 16.7 k/uL (3.8-10.6)
--- NOTE | 2022-02-04 08:08 | P.DS ---
Providers Date of admission: 02/03/22 06:09 Expected date of discharge: 02/04/22 Attending physician: Jnenifer Peters Primary care physician: Stated None - Discharge Diagnosis(es) (1) Encounter for induction of labor Current Visit: Yes Status: Resolved (2) Normal vaginal delivery Current Visit: No Status: Acute Hospital Course: Patient presented for induction of labor at 40 weeks and 5 days. She underwent a normal vaginal delivery. course was uncomplicated. She denies n ausea, vomiting, chest pain, shortness of breath or any calf pain. Patient will be discharged home day #1 in stable condition to follow-up with me in 6 weeks. Plan - Discharge Summary New Discharge Prescriptions: New Ibuprofen [Motrin] 600 mg PO Q6HR PRN #30 tab PRN Reason: Mild Pain (Scale 1 To 3) Discharge Medication List Ibuprofen [Motrin] 600 mg PO Q6HR PRN #30 tab 02/04/22 [Rx] Follow up Appointment(s)/Referral(s): Jennifer Peters DO [Doctor of Osteopathic Medicine] - 03/21/22 10:45 am Discharge Disposition: HOME SELF-CARE
[2022-02-04] MEDS: SENNOSIDES-DOCUSATE SODIUM 1 EACH TAB PO SCH (08:14)
[2022-02-04] MEDS: IBUPROFEN 600 MG TAB PO PRN (08:15)
[2022-02-04 10:51] VITALS: BP 111/72; PULSE 107; RESP 16
== END 2022-02-04 13:00 | disposition home or self-care (01) | DRG 807 ==
LOC: 4FBP 06:09
PROVIDERS: ADMIT Obstetrics & Gynecology; ATTEND Obstetrics & Gynecology
PROC: 10E0XZZ Delivery of Products of Conception, External Approach (ICD-10-PCS; principal; 2022-02-03)
PROC: 4A0HXCZ Measurement of Products of Conception, Cardiac Rate, External Approach (ICD-10-PCS; 2022-02-03)
PROC: 3E033VJ Introduction of Other Hormone into Peripheral Vein, Percutaneous Approach (ICD-10-PCS; 2022-02-03)
PROC: 10907ZC Drainage of Amniotic Fluid, Therapeutic from Products of Conception, Via Natural or Artificial Opening (ICD-10-PCS; 2022-02-03)
DX: O69.81X0 Labor and delivery complicated by cord around neck, without compression, not applicable or unspecified (principal); Z37.0 Single live birth; O77.0 Labor and delivery complicated by meconium in amniotic fluid; O48.0 Post-term pregnancy; Z3A.40 40 weeks gestation of pregnancy; Z87.59 Personal history of other complications of pregnancy, childbirth and the puerperium; Z87.891 Personal history of nicotine dependence
CPT/HCPCS: 85025; 86850; 86900; 86901

== ENCOUNTER 2022-05-14 11:23 | Emergency (ER) | payer OTHER ==
[2022-05-14 11:29] VITALS: TEMP 98.6
[2022-05-14] MEDS ORDERED: KETOROLAC 15 MG/ML 1 ML VIAL IVP STA (11:50)
--- NOTE | 2022-05-14 11:53 | ED ---
General Adult HPI - General Chief complaint: Fall Stated complaint: slip & fall, back & chest pain Time Seen by Provider: 05/14/22 11:36 Source: patient, RN notes reviewed Mode of arrival: ambulatory Limitations: no limitations - History of Present Illness Initial comments: 27-year-old female with no significant past medical history presents the emergency department with a chief complaint of a fall. She notes that she was going down steps when she slipped on ice and fell onto her upper back. She is complaining of upper back pain and chest pain when she takes a deep breath. She denies hitting her head, any loss of consciousness or any anticoagulant use. she denies any headache, vision changes, nausea, vomiting, chest palpitations, shortness of breath. She has not taken anything for pain. - Related Data Previous Rx's Medication Instructions Recorded Ibuprofen [Motrin] 600 mg PO Q6HR PRN #30 tab 02/04/22 Allergies Allergy/AdvReac Type Severity Reaction Status Date / Time No Known Allergies Allergy Verified 05/14/22 11:29 Review of Systems ROS Statement: Those systems with pertinent positive or pertinent negative responses have been documented in the HPI. ROS Other: All systems not noted in ROS Statement are negative. Past Medical History Past Medical History: No Reported History Additional Past Medical History / Comment(s): OB history: previous spontaneous 3, history of 2 vaginal delivery. This is her sixth . She's had care with me since the first trimester. Blood type is O+, antibody is negative, rubella immune, this B-, GBS negative. History of Any Multi-Drug Resistant Organisms: None Reported Past Surgical History: Ear Surgery, Orthopedic Surgery Additional Past Surgical History / Comment(s): Birthmark removed from back. BMT. ORIF left foot. D&C. Past Anesthesia/Blood Transfusion Reactions: No Reported Reaction Past Psychological History: No Psychological Hx Reported Smoking Status: Never smoker Past Alcohol Use History: None Reported Past Drug Use History: Marijuana - Past Family History Mother History Unknown: Yes Family Medical History: Deep Vein Thrombosis (DVT) General Exam Limitations: no limitations General appearance: alert, in no apparent distress Head exam: Present: atraumatic, normocephalic, normal inspection Eye exam: Present: normal appearance, PERRL, EOMI. Absent: scleral icterus, conjunctival injection, periorbital swelling ENT exam: Present: normal exam, mucous membranes moist Neck exam: Present: normal inspection. Absent: tenderness, meningismus, lymphadenopathy Respiratory exam: Present: normal lung sounds bilaterally. Absent: respiratory distress, wheezes, rales, rhonchi, stridor Cardiovascular Exam: Present: regular rate, normal rhythm, normal heart sounds. Absent: systolic murmur, diastolic murmur, rubs, gallop, clicks GI/Abdominal exam: Present: soft, normal bowel sounds. Absent: distended, tenderness, guarding, rebound, rigid Extremities exam: Present: normal inspection, full ROM, normal capillary refill. Absent: tenderness, pedal edema, joint swelling, calf tenderness Back exam: Present: normal inspection Neurological exam: Present: alert, oriented X3, CN II-XII intact Psychiatric exam: Present: normal affect, normal mood Skin exam: Present: warm, dry, intact, normal color. Absent: rash Course Vital Signs 05/14/22 05/14/22 11:27 13:17 Temperature 98.6 F Pulse Rate 94 72 Respiratory 20 18 Rate Blood Pressure 126/82 122/80 O2 Sat by Pulse 100 97 Oximetry - Reevaluation(s) Reevaluation #1: 05/14/22 12:15 patient reevaluated. Patient reports symptomatic relief status post Toradol and updated on x-ray results. Agreeable with plan for discharge home. EKG Findings - EKG Comments: EKG Findings:: Interpreted the following: EKG performed at 12:01. Rate 77 bpm, NSR HI interval 154, QRS 90, QT/QTc 351/383 Medical Decision Making - Medical Decision Making Was pt. sent in by a medical professional or institution (Dr. PA, TIE PRESSER, urgent care, hospital, or [facility]...) When possible be specific @ -[No] Did you speak to anyone other than the patient for history (EMS, parent, family, police, friend...)? What history was obtained from this source @ -[No] Did you review nursing and triage notes (agree or disagree)? Why? @ -[I reviewed and agree with nursing and triage notes] Were old charts reviewed (outside hosp., previous admission, EMS record, old EKG, old radiological studies, urgent care reports/EKG's, [facility] records)? Report findings @ -[No old charts were reviewed] Differential Diagnosis (chest pain, altered mental status, abdominal pain women, abdominal pain men, vaginal bleeding, weakness, fever, dyspnea, syncope, headach e, dizziness, GI bleed, back pain, seizure, CVA, palpatations, mental health)? @ -[not applicable] EKG interpreted by me (3pts min.). @ -[As above] X-rays interpreted by me (1pt min.). @ XR chest and thoracic spine negative for acute fracture CT interpreted by me (1pt min.). @ -[None done] U/S interpreted by me (1pt. min.). @ -[None done] What testing was considered but not performed or refused? (CT, X-rays, U/S, labs)? Why? @ -[None] What meds were considered but not given or refused? Why? @ -[None] Did you discuss the management of the patient with other professionals (professionals i.e. , PA, TIE PRESSER, lab, RT, psych nurse, social media project manager, stock manager, teacher, hospital chief financial officer, case assembler)? Give summary @ -[No] Was smoking cessation discussed for >3mins.? @ -[No] Was critical care preformed (if so, how long)? @ -[No] Were there social determinants of health that impacted care today? How? (Homelessness, low income, unemployed, alcoholism, drug addiction, transportation, low edu. Level, literacy, decrease access to med. care, group home, rehab)? @ -[No] Was there de-escalation of care discussed even if they declined (Discuss DNR or withdrawal of care, Hospice)? DNR status @ -[No] What co-morbidities impacted this encounter? (DM, HTN, Smoking, COPD, CAD, Cancer, CVA, ARF, Chemo, Hep., AIDS, mental health diagnosis, sleep apnea, morbid obesity)? @ -[None] Was patient admitted / discharged? Hospital course, mention meds given and route, prescriptions, significant lab abnormalities, going to OR and other pertinent info. @ -Was pt. sent in by a medical professional or institution (, PA, TIE PRESSER, urgent care, hospital, or [facility]...) When possible be specific @ -[No] Did you speak to anyone other than the patient for history (EMS, parent, family, police, friend...)? What history was obtained from this source @ -[No] Did you review nursing and triage notes (agree or disagree)? Why? @ -[I reviewed and agree with nursing and triage notes] Were old charts reviewed (outside hosp., previous admission, EMS record, old EKG, old radiological studies, urgent care reports/EKG's, [facility] records)? Report findings @ -[No old charts were reviewed] Differential Diagnosis (chest pain, altered mental status, abdominal pain women, abdominal pain men, vaginal bleeding, weakness, fever, dyspnea, syncope, headache, dizziness, GI bleed, back pain, seizure, CVA, palpatations, mental health)? @ -[not applicable] EKG interpreted by me (3pts min.). @ -[As above] X-rays interpreted by me (1pt min.). @ -[None done] CT interpreted by me (1pt min.). @ -[None done] U/S interpreted by me (1pt. min.). @ -[None done] What testing was considered but not performed or refused? (CT, X-rays, U/S, labs)? Why? @ -[None] What meds were considered but not given or refused? Why? @ -[None] Did you discuss the management of the patient with other professionals (professionals i.e. , PA, TIE PRESSER, lab, RT, psych nurse, social media project manager, stock manager, teacher, hospital chief financial officer, case assembler)? Give summary @ -[No] Was smoking cessation discussed for >3mins.? @ -[No] Was critical care preformed (if so, how long)? @ -[No] Were there social determinants of health that impacted care today? How? (Homelessness, low income, unemployed, alcoholism, drug addiction, transportation, low edu. Level, literacy, decrease access to med. care, group home, rehab)? @ -[No] Was there de-escalation of care discussed even if they declined (Discuss DNR or withdrawal of care, Hospice)? DNR status @ -[No] What co-morbidities impacted this encounter? (DM, HTN, Smoking, COPD, CAD, Cancer, CVA, ARF, Chemo, Hep., AIDS, mental health diagnosis, sleep apnea, morbid obesity)? @ -[None] Was patient admitted / discharged? Hospital course, mention meds given and route, prescriptions, significant lab abnormalities, going to OR and other pertinent info. @ 27-year-old female presents to the emergency department after a fall. Patient had a thorough history and physical performed. Physical exam is unremarkable, regular rate and rhythm, lung sounds clear to auscultation bilaterally abdomen soft nontender. Patient was given Toradol with symptomatic relief while in the ED. X-rays were negative. I discussed the results with the patient, all questions and concerns were addressed. I discussed Return precautions. Patient was discharged in stable condition. With encouraged close follow-up in 1-2 days with primary care physician. Case discussed with EUGENIO Godoy who agrees with plan of care. Undiagnosed new problem with uncertain prognosis? @ -[No] Drug Therapy requiring intensive monitoring for toxicity (Heparin, Nitro, Insulin, Cardizem)? @ -[No] Were any procedures done? @ -[No] Diagnosis/symptom? @ -fall T spine contusion Acute, or Chronic, or Acute on Chronic? @ -acute Uncomplicated (without systemic symptoms) or Complicated (systemic symptoms)? @ -[default] Side effects of treatment? @ -[No] Exacerbation, Progression, or Severe Exacerbation? @ -[No] Poses a threat to life or bodily function? How? (Chest pain, USA, NM, pneumonia, PE, COPD, DKA, ARF, appy, cholecystitis, CVA, Diverticulitis, Homicidal, Suicidal, threat to staff... and all critical care pts) @ -[No Undiagnosed new problem with uncertain prognosis? @ -[No] Drug Therapy requiring intensive monitoring for toxicity (Heparin, Nitro, Insulin, Cardizem)? @ -[No] Were any procedures done? @ -[No] Diagnosis/symptom? @ -fall Acute, or Chronic, or Acute on Chronic? @ -acute Uncomplicated (without systemic symptoms) or Complicated (systemic symptoms)? @ -uncomplicated Side effects of treatment? @ -[No] Exacerbation, Progression, or Severe Exacerbation? @ -[No] Poses a threat to life or bodily function? How? (Chest pain, USA, NM, pneumonia, PE, COPD, DKA, ARF, appy, cholecystitis, CVA, Diverticulitis, Homicidal, Suicidal, threat to staff... and all critical care pts) @ -[No] Disposition Clinical Impression: Fall Disposition: HOME SELF-CARE Condition: Stable Instructions (If sedation given, give patient instructions): Back Pain (ED) Is patient prescribed a controlled substance at d/c from ED?: No Referrals: None,Stated [Primary Care Provider] - 1-2 days Time of Disposition: 13:00
--- NOTE | 2022-05-14 12:47 | XR ---
EXAMINATION TYPE: XR thoracic spine 2V, XR chest 2V DATE OF EXAM: 05/14/2022 12:27 PM INDICATION: Patient age:Female; 27 years old; Reason for study: fall; COMPARISON: None TECHNIQUE: 2 views of the thoracic spine in Frontal and lateral projections. Frontal and lateral disease of the chest. FINDINGS: No evidence of acute fracture. There is no evidence of disk space narrowing or loss of vertebral bod y height. There is normal alignment of the thoracic vertebral bodies. Lungs/Pleura: There is no evidence of pleural effusion, focal consolidation, or pneumothorax. Pulmonary vascularity: Unremarkable. Heart/mediastinum: Cardiomediastinal silhouette is unremarkable. Musculoskeletal: No acute osseous pathology. IMPRESSION: No acute osseous pathology. No acute cardiopulmonary disease/process.
[2022-05-14 13:18] VITALS: BP 122/80; PULSE 72; RESP 18
== END 2022-05-14 13:18 | disposition home or self-care (01) ==
LOC: EC 11:23
DX: S29.9XXA Unspecified injury of thorax, initial encounter (principal); F12.90 Cannabis use, unspecified, uncomplicated; W00.1XXA Fall from stairs and steps due to ice and snow, initial encounter; Y92.009 Unspecified place in unspecified non-institutional (private) residence as the place of occurrence of the external cause
CPT/HCPCS: 99284 ×2; 96374; 93005; 72070; 71046; 99283; J1885

== ENCOUNTER 2024-08-05 00:02 | Inpatient (IN) | payer OTHER ==
[2024-08-05] MEDS ORDERED: CARBOPROST TROMETHAMINE 250 MCG/ML 1 ML AMP IM PRN (00:25)
[2024-08-05] MEDS ORDERED: TERBUTALINE 1 MG/ML VIAL SQ PRN (00:25)
[2024-08-05] MEDS ORDERED: miSOPROStoL 200 MCG TAB PO PRN (00:25)
[2024-08-05] MEDS ORDERED: TRANEXAMIC 1,000 MG/100ML-NACL 1,000 MG in EMPTY BAG 1 BAG IV PRN (00:25)
[2024-08-05] MEDS ORDERED: LIDOCAINE 0.5% (PF) 5 MG/ML (50 ML SDV) SQ PRN (00:25)
[2024-08-05] MEDS ORDERED: OXYTOCIN 10 UNIT/ML 1 ML VIAL IM PRN (00:25)
[2024-08-05] MEDS ORDERED: miSOPROStoL 200 MCG TAB RECTAL PRN (00:25)
[2024-08-05] MEDS ORDERED: METHYLERGONOVINE 0.2 MG/ML 1 ML AMP IM PRN (00:25)
[2024-08-05] MEDS: LACTATED RINGERS 1,000 ML IV SCH (00:46)
[2024-08-05 00:48] LABS: Basophils # (A) 0.02 10*3/uL (0.00-0.10); Basophils % (A) 0.1 %; Eosinophils # (A) 0.14 10*3/uL (0.04-0.35); HCT 37.5 % (37.2-46.3); HGB 12.2 g/dL (12.0-15.0); Lymphocytes # (A) 2.76 10*3/uL (0.90-5.00); Lymphocytes % (A) 20.2 %; MCH 25.3 pg (27.0-32.0); MCHC 32.5 g/dL (32.0-37.0); MCV 77.6 fL (80.0-97.0); Mean Platelet Volume 9.7 fL (9.5-12.2); Monocytes # (A) 1.28 10*3/uL (0.20-1.00); Monocytes % (A) 9.4 %; Neutrophils # (A) 9.39 10*3/uL (1.80-7.70); Neutrophils % (A) 68.9 %; Platelet Count 334 10*3/uL (140-440); RBC 4.83 10*6/uL (4.10-5.20); WBC 13.64 10*3/uL (4.50-10.00)
[2024-08-05] MEDS ORDERED: fentaNYL (PF) 50 MCG/ML 5 ML AMP ONE (01:20)
[2024-08-05] MEDS ORDERED: ROPIVACAINE 5 MG/ML 30 ML VIAL ONE (01:20)
[2024-08-05] MEDS ORDERED: SODIUM CHLORIDE 0.9% 250 ML BAG ONE (01:20)
[2024-08-05 02:15] LABS: Amphetamine Screen,Urine Not Detected (NotDetected); Barbiturate Screen,Urine Not Detected (NotDetected); Benzodiazepines Screen,Urine Not Detected (NotDetected); Cocaine Screen,Urine Not Detected (NotDetected); Methadone Screen, Urine Not Detected (NotDetected); Opiate Screen,Urine Not Detected (NotDetected); Oxycodone Screen, Urine Not Detected (NotDetected); Phencyclidine Screen,Urine Not Detected (NotDetected); Tricyclic Antidepressant,Urine Not Detected (NotDetected); Urn Cannabinoid Scrn Not Detected (NotDetected)
--- NOTE | 2024-08-05 02:39 | P.HPOB ---
History of Present Illness H&P Date: 08/05/24 Chief Complaint: Contractions Ms. Frazier is a 29 year old at 39 weeks and 3 days with EDC of 08/09/24 by LMP consistent with a 14 week US presenting in active labor. Her induction of labor was scheduled for later this morning. She is delaney regularly and has made change from 4 centimeters to 7 centimeters in 1-2 hours. has been essentially uncomplicated. The fetus is estimated in the 88%ile based on a growth US at almost 35 weeks. Obstetric history: 3 FTVD no complications, 2 SABs, 1 missed AB with D&C work-up: blood type O positive, antibody screen negative, rubella non- immune, HBsAg negative, HIV negative, HCV non-reactive, gonorrhea negative, chlamydia negative, 1 hour GTT elevated > 3 hour GTT wnl, GBS negative. Past Medical History Past Medical History: No Reported History Additional Past Medical History / Comment(s): OB history: previous spontaneous 3, history of 2 vaginal delivery. This is her sixth . She's had care with me since the first trimester. Blood type is O+, antibody is negative, rubella immune, this B-, GBS negative. History of Any Multi-Drug Resistant Organisms: None Reported Past Surgical History: Ear Surgery, Orthopedic Surgery Additional Past Surgical History / Comment(s): Birthmark removed from back. BMT. ORIF left foot. D&C. Past Anesthesia/Blood Transfusion Reactions: No Reported Reaction Past Psychological History: No Psychological Hx Reported Smoking Status: Never smoker Past Alcohol Use History: None Reported Additional Past Alcohol Use History / Comment(s): Quit smoking 2010, smoked for 3 yrs, < 1 PPD Past Drug Use History: Marijuana Additional Drug Use History / Comment(s): OCC USE. - Past Family History Mother History Unknown: Yes Family Medical History: Deep Vein Thrombosis (DVT) Medications and Allergies Allergies Allergy/AdvReac Type Severity Reaction Status Date / Time No Known Allergies Allergy Verified 08/05/24 00:25 Exam Intake and Output 08/04/24 08/04/24 08/05/24 14:59 22:59 06:59 Other: Weight 107.048 kg Focused physical exam is performed. This is a healthy-appearing in no apparent distress. Breathing is non-labored. Abdomen is gravid and non-tender. Cervical exam is 7-8 centimeters, per OB RN. Extremities non-tender and non- edematous. heart tones are Category I and tocometer is graphing contractions every 2-4 minutes. Results Result Diagrams: 08/05/24 00:35 Abnormal Lab Results - Last 24 Hours (Table) 08/05/24 Range/Units 00:35 WBC 13.64 H (4.50-10.00) 10*3/uL MCV 77.6 L (80.0-97.0) fL MCH 25.3 L (27.0-32.0) pg Immature Gran # 0.05 H (0.00-0.04) 10*3/uL Neutrophils # 9.39 H (1.80-7.70) 10*3/uL Monocytes # 1.28 H (0.20-1.00) 10*3/uL Assessment and Plan Assessment: 29 year old at 39 weeks and 3 days presenting in active labor Plan: Admit, clear liquid diet, expectant management, continuous EFM and tocometer, anticipate vaginal delivery
[2024-08-05] MEDS: OXYTOCIN 30 UNITS/500 ML NS 30 UNIT in SALINE 1 500ML.BAG IV SCH (04:46)
[2024-08-05] MEDS ORDERED: LANOLIN CREAM 1 GM TUBE TOPICAL PRN (05:08)
[2024-08-05] MEDS ORDERED: diphenhydrAMINE 50 MG CAP PO PRN (05:08)
[2024-08-05] MEDS ORDERED: diphenhydrAMINE 50 MG/ML 1 ML VIAL IVP PRN ×2 (05:08)
[2024-08-05] MEDS ORDERED: HYDROCORTISONE 2.5% RECTAL CREAM 30 GM TUBE RECTAL PRN (05:08)
[2024-08-05] MEDS ORDERED: diphenhydrAMINE 25 MG CAP PO PRN (05:08)
[2024-08-05] MEDS ORDERED: SIMETHICONE 80 MG CHEWABLE PO PRN (05:08)
[2024-08-05] MEDS ORDERED: BENZOCAINE/MENTHOL SPRAY 1 GM/SPRAY AEROSOL TOPICAL PRN (05:08)
[2024-08-05] MEDS ORDERED: ZOLPIDEM 5 MG TAB PO PRN (05:08)
--- NOTE | 2024-08-05 05:08 | P.PROBDLV ---
Vaginal Delivery Note - . Vaginal Delivery Note: DATE OF SERVICE: 08/05/2024 PROCEDURE: Normal Vaginal Delivery ATTENDING: Dr. Jacklyn Mancini MD ESTIMATED BLOOD LOSS: 50 mL FINDINGS: VFI, Apgars 9/9. Weight 8 pounds and 11 ounces (3955 grams) PROCEDURE: Ms. Frazier is a 29 year old at 39 weeks and 3 days presenting to labor and delivery in active labor. For further details, please review the admitting H&P. The patient received epidural anesthesia per her request. SROM occurred at 358 revealing thick meconium. The patient was completely dilated at 435. The patient pushed effectively. A viable female infant was delivered at 443. The was placed on the maternal abdomen and bulb suctioned. The was noted to be spontaneously crying. Cord was clamped and cut after a 60-second delay. The was handed off to the pediatric team. Placenta was delivered whole with gentle cord traction at 446. Oxytocin was started to facilitate uterine tone. Uterine fundus was found to be firm and below the umbilicus upon fundal massage. Thorough examination of the cervix, vagina, periurethral area, and perineum revealed no lacerations. The patient is stable and allowed to begin the bonding process.
[2024-08-05] MEDS: IBUPROFEN 800 MG TAB PO SCH (07:43)
[2024-08-05] MEDS: SENNOSIDES-DOCUSATE SODIUM 1 EACH TAB PO SCH (12:21)
[2024-08-05] MEDS: ACETAMINOPHEN TAB 500 MG TAB PO SCH (22:09)
[2024-08-06] MEDS: MEASLES-MUMPS-RUBELLA VACC/PF 0.5 ML VIAL SQ ONE (06:10)
[2024-08-06 06:24] LABS: Basophils # (A) 0.04 10*3/uL (0.00-0.10); Basophils % (A) 0.3 %; Eosinophils # (A) 0.22 10*3/uL (0.04-0.35); Eosinophils % (A) 1.8 %; HCT 32.5 % (37.2-46.3); HGB 10.5 g/dL (12.0-15.0); Lymphocytes # (A) 3.41 10*3/uL (0.90-5.00); Lymphocytes % (A) 27.2 %; MCH 25.7 pg (27.0-32.0); MCHC 32.3 g/dL (32.0-37.0); MCV 79.5 fL (80.0-97.0); Mean Platelet Volume 9.5 fL (9.5-12.2); Monocytes # (A) 1.13 10*3/uL (0.20-1.00); Neutrophils # (A) 7.69 10*3/uL (1.80-7.70); Neutrophils % (A) 61.4 %; Platelet Count 259 10*3/uL (140-440); RBC 4.09 10*6/uL (4.10-5.20); RDW 15.2 % (11.5-14.5); WBC 12.53 10*3/uL (4.50-10.00)
--- NOTE | 2024-08-06 08:11 | P.DS ---
Providers Date of admission: 08/05/24 00:02 Expected date of discharge: 08/06/24 Attending physician: Jennifer Peters Primary care physician: Stated None - Discharge Diagnosis(es) (1) Normal vaginal delivery Current Visit: No Status: Acute Hospital Course: Presented in active labor. She underwent a normal vaginal delivery. course was uneventful. She denies nausea, vomiting, chest pain, shortness of breath or calf pain. Patient discharged home day #1 in stable condition to follow-up with me in 6 weeks. Plan - Discharge Summary New Discharge Prescriptions: New Ibuprofen [Motrin] 800 mg PO Q8HR #30 tab Discharge Medication List Ibuprofen [Motrin] 800 mg PO Q8HR #30 tab 08/06/24 [Rx] Follow up Appointment(s)/Referral(s): Jennifer Peters DO [Doctor of Osteopathic Medicine] - 09/18/24 11:30 am Discharge Disposition: HOME SELF-CARE
[2024-08-06 08:24] VITALS: RESP 17
[2024-08-06 12:12] VITALS: BP 108/73; PULSE 81; TEMP 98.1
== END 2024-08-06 12:00 | disposition home or self-care (01) | DRG 560 ==
LOC: 4FBP 00:02
PROVIDERS: ADMIT Obstetrics & Gynecology; ATTEND Obstetrics & Gynecology
PROC: 10E0XZZ Delivery of Products of Conception, External Approach (ICD-10-PCS; principal; 2024-08-05)
PROC: 3E0134Z Introduction of Serum, Toxoid and Vaccine into Subcutaneous Tissue, Percutaneous Approach (ICD-10-PCS; 2024-08-06)
DX: O77.0 Labor and delivery complicated by meconium in amniotic fluid (principal); Z87.891 Personal history of nicotine dependence; Z23 Encounter for immunization; Z3A.39 39 weeks gestation of pregnancy; Z37.0 Single live birth
CPT/HCPCS: 80306; 85025; 86850; 86900; 86901; 90707

== ENCOUNTER → 2024-10-25 | Outpatient (CLI) | payer OTHER ==
[2024-10-25 15:32] LABS: Basophils # (A) 0.06 X 10*3/uL (0.00-0.10); Basophils % (A) 0.5 %; Eosinophils # (A) 0.15 X 10*3/uL (0.04-0.35); Eosinophils % (A) 1.2 %; HCT 39.8 % (37.2-46.3); HGB 12.3 g/dL (12.0-15.0); Immature Grans, Automated 0.40 %; Lymphocytes # (A) 3.62 X 10*3/uL (0.90-5.00); Lymphocytes % (A) 29.6 %; MCH 25.5 pg (27.0-32.0); MCHC 30.9 g/dL (32.0-37.0); MCV 82.4 FL (80.0-97.0); Monocytes # (A) 0.72 X 10*3/uL (0.20-1.00); Monocytes % (A) 5.9 %; NRBC Per 100 WBC 0 X 10*3/uL (0.00-0.01); Neutrophils # (A) 7.62 X 10*3/uL (1.80-7.70); Neutrophils % (A) 62.4 %; Platelet Count 356 X 10*3/uL (140-440); RBC 4.83 X 10*6/uL (4.10-5.20); RDW 15.3 % (11.5-14.5); WBC 12.22 X 10*3/uL (4.50-10.00)
== END | disposition home or self-care (01) ==
LOC: LABWHC1 12:07
PROVIDERS: ATTEND Obstetrics & Gynecology Obstetrics
DX: Z01.812 Encounter for preprocedural laboratory examination (principal)
CPT/HCPCS: 36415; 85025

== ENCOUNTER 2024-10-28 09:13 | Day surgery (SDC) | payer OTHER ==
[~2024-10-28 09:13] MED LIST changes: +HYDROmorphone 0.5 MG/0.5 ML SYRINGE IVP PRN; -LACTATED RINGERS 1,000 ML IV SCH; +LIDOCAINE 1% (10MG/ML) FOR IV START INTRADERMA PRN; +Pre Op ABX Message 1 EACH MISC MISCELLANE ONE; +droPERidol 2.5 MG/ML VIAL IVP ONE
[2024-10-28] MEDS: LACTATED RINGERS 1,000 ML IV SCH (09:51)
[2024-10-28] MEDS: DEXAMETHASONE SOD PHOSPHATE 4 MG/ML 1 ML VIAL IV ONE (09:52)
[2024-10-28] MEDS: ONDANSETRON 4 MG/2 ML VIAL IVP ONE (09:52)
[2024-10-28] MEDS: FAMOTIDINE 20 MG/2 ML VIAL IV STA (09:54)
[2024-10-28] MEDS: IV FLUID CONTINUATION 1,000 ML IV ONE (09:57)
[2024-10-28] MEDS ORDERED: fentaNYL (PF) 50 MCG/ML 2 ML AMP ONE (10:17)
[2024-10-28] MEDS ORDERED: KETOROLAC 15 MG/ML 1 ML VIAL ONE (10:17)
[2024-10-28] MEDS ORDERED: GLYCOPYRROLATE 0.2 MG/ML 2 ML VIAL ONE (10:17)
[2024-10-28] MEDS ORDERED: SUCCINYLCHOLINE CHLORIDE 200 MG/10 ML VIAL IV ONE (10:17)
[2024-10-28] MEDS ORDERED: LIDOCAINE 1% INJ 10MG/ML (20 ML MDV) ONE (10:17)
[2024-10-28] MEDS ORDERED: NEOSTIGMINE 1 MG/ML 10 ML VIAL ONE (10:17)
[2024-10-28] MEDS ORDERED: ROCURONIUM 10 MG/ML (5 ML VIAL) IV ONE (10:17)
[2024-10-28] MEDS ORDERED: PROPOFOL 10 MG/ML 20 ML VIAL IV ONE (10:17)
[2024-10-28] MEDS: BUPIVACAINE (PF) 0.25% 30 ML VIAL SQ ONE (10:44)
--- NOTE | 2024-10-28 11:14 | P.OP ---
Date of Procedure: 10/28/24 Preoperative Diagnosis: Undesired fertility, family-planning Postoperative Diagnosis: Same Procedure(s) Performed: Operative laparoscopy, bilateral salpingectomy Anesthesia: GETA Surgeon: Lyn Farnsworth Estimated Blood Loss (ml): 5 IV fluids (ml): 400 Urine output (ml): 100 (Clear yellow) Pathology: none sent Condition: stable Indications for Procedure: Family status complete Operative Findings: Normal uterus tubes and ovaries were appreciated Description of Procedure: Patient was taken back to the operating room where general anesthesia was obtained without difficulty by the anesthesia department. She was prepped and draped in the normal sterile fashion in the dorsal lithotomy position. A red rubber catheter was used to drain the bladder of clear yellow urine. A weighted speculum was placed in the posterior vaginal vault, the anterior lip of the cervix was visualized and grasped with a single-tooth tenaculum, an acorn uterine manipulator was advanced into the cervix as a means to manipulate the uterus throughout the procedure. Attention then turned to the patient's abdomen where in the umbilical fold a small skin incision is made. Through this incision the Veress needle is placed. Once the Veress needle was deemed to be in appropriate position with a drop of CO2 pressure with the insufflation of CO2 gas CO2 insufflation was allowed to occur. Approximately 3 L of gas were used to obtain pneumoperitoneum. At this time a 5 mm trocar and sleeve is placed through the skin incision and toward the pneumoperitoneum with the laparoscope in place. The above-noted findings are visualized. The additional port sites were then placed approximately 10 cm lateral and 3 cm inferiorly midline port, one 5 mm port is placed in the right mid abdomen, an 8 mm port is placed in the left mid abdomen. The right fallopian tube was then elevated and the mesosalpinx was coagulated and transected to the cornual region. This was then repeated on the opposite side. Hemostasis was appreciated throughout. Multiple pictures were taken. All counts remain correct x 2. Patient tolerated procedure well and was taken to recovery room awake in stable condition.
[2024-10-28 11:16] VITALS: TEMP 97.7
[2024-10-28 12:33] VITALS: BP 109/60; PULSE 67; RESP 14
== END 2024-10-28 12:32 | disposition home or self-care (01) ==
LOC: OR 09:13
PROVIDERS: ATTEND Obstetrics & Gynecology Obstetrics
DX: Z30.2 Encounter for sterilization (principal); Z87.891 Personal history of nicotine dependence
CPT/HCPCS: 58661; 81025; 88302; J0330; J1100; J2710; J2405; J2003; J3010; J1885; J2704; J0665; J1596; J1308